=== PATIENT | male | born 1970 | race Caucasian/White ===

== ENCOUNTER 2021-05-07 08:33 | Emergency (ER) | payer MEDICAID, SELFPAY ==
[2021-05-07 08:33] VITALS: BP 141/82; PULSE 95; RESP 16; TEMP 36.3; O2SAT 96; BMI 35.4
[2021-05-07 09:05] LABS: Absolute Lymphocyte Count 1.16 X10^3/uL (0.83-4.51); Absolute Neutrophil Count 6.3 X10^3/uL (2.0-7.7); Basophil# 0.03 X10^3/uL; Basophil% 0.4 % (0-1); Eosinophil# 0.11 X10^3/uL; Eosinophils% 1.4 % (0-5); Hematocrit 41.6 % (40-54); Lymphocyte # 1.16 X10^3/ul (0.83-4.51); Lymphocyte % 14.3 % (19-41); Mean Corp Hgb Conc 33.7 g/dL (32-36); Mean Corpuscular Hgb 31.3 pg (27.0-32.0); Mean Corpuscular Volume 92.9 fL (80-94); Mean Platelet Vol. 8.9 fl (6.2-12.0); Monocyte# 0.51 X10^3/uL; Monocyte% 6.3 % (0-10); NRBC Flagged by Analyzer 0 % (0-5); Neutrophil # 6.28 X10^3/uL (2.7-7.7); Neutrophil % 77.1 % (47-70); Platelet Count 305 K/mm3 (150-450); RBC Distribution Width SD 44.2 fl (35.1-43.9); Red Blood Count 4.48 M/mm3 (4.6-6.2); White Blood Count 8.1 K/mm3 (4.4-11.0)
[2021-05-07 09:15] LABS: ALB/GLOB Ratio 0.9 RATIO (0.9-2.4); AST(SGOT) 21 U/L (15-37); Alanine Aminotransfer ALT/SGPT 25 U/L (16-61); Albumin, Serum 3.5 g/dL (3.2-5.0); Alkaline Phosphatase 66 U/L (45-117); Anion Gap 8 (5-15); BUN 12 mg/dL (7-18); BUN/Creat Ratio 9.4 RATIO (10-20); Calcium,Total 8.8 mg/dL (8.5-10.1); Chloride 106 mmol/L (98-107); Creatinine, Serum 1.28 mg/dL (0.70-1.30); EST Glomerular Filtration Rate 64 mL/min (>60); Est Glom Filt Rate - Afr Amer 77 mL/min (>60); Estimated Creatinine Clearance 75.17 ml/min; Globulin 4.1 g/dL (2.2-4.2); Glucose 97 mg/dL (74-106); Potassium 4.2 mmol/L (3.5-5.1); Protein, Total 7.6 g/dL (6.4-8.2); Sodium Level 138 mmol/L (136-145)
--- NOTE | 2021-05-07 09:15 | CT_ITS ---
STUDY: CT ABDOMEN AND PELVIS WITH CONTRAST REASON FOR EXAM: Male, 50 years old. Pain at the ileostomy site. Rectal pain and pressure. RADIATION DOSAGE (If Supplied By Facility): CTDIvol = ( 15.23 ) mGy, DLP = ( 1400.65 ) mGycm TECHNIQUE: Transaxial images were obtained from the dome of the diaphragm to the symphysis pubis with oral contrast. Oral and amp;amp; IV Gastrografin and amp;amp; 100mL Isovue-300 was administered. Sagittal and coronal images were reconstructed. Individualized dose optimization techniques were used for this CT. COMPARISON: None. FINDINGS: Minimal degree of increased markings at the lung bases suggestive of mild bibasilar atelectasis. The visualized portions of the heart are within normal limits. There is decreased attenuation of the liver consistent with steatosis. Normal gallbladder and extrahepatic biliary system. Normal spleen. Normal pancreas. Normal bilateral adrenal glands. Normal right kidney. Normal left kidney. Normal visualized stomach. An ostomy is seen in the left mid abdomen anteriorly. There is also evidence of a right paraumbilical hernia containing nondilated small bowel loops. The neck of the hernia measures 3.2 cm. Surgical clips are seen in the lower abdomen most likely at the anastomotic site of small bowel anastomosis. Normal colon. The appendix is visualized and appears normal. There is scattered atherosclerotic calcification of the abdominal aorta, without a demonstrated aneurysm. Normal inferior vena cava. Normal retroperitoneum. Normal urinary bladder. Normal abdominal wall. There are mild degenerative changes of the visualized lumbar spine. CT/Abdomen/Pelvis WITH Contrast IMPRESSION: Ostomy is seen in the left lower quadrant. Right paraumbilical hernia containing nondilated small bowel loop with the neck of the hernia measuring 3.2 cm. Electronically Signed: Maksim Tomas MD at 11:23 EDT , Service support ,
--- NOTE | 2021-05-07 09:16 | EX.ED.DYSGE1 ---
HPI History of Present Illness Chief Complaint: Abd Pain Informant: patient Narrative Narrative: 50-year-old male presents to the emergency department for evaluation abdominal pain. Patient states for the past several days he has had rectal pain/pressure and generalized abdominal pain. He feels nauseated. He feels bloated. Patient has a fairly complicated Crohn's history. Unfortunately all of his care has been in [place] and he recently moved to [facility]. He does not currently have any doctors caring for him locally. He is not on any maintenance medications for his Crohn's. Patient has had a J-pouch and currently with an ileostomy that was placed in 2019 in [place]. Patient states he is really has not had any problems since the ileostomy. Currently he notes no change in the output. No blood in the output. He states the stoma site has been looking fine. He denies history of SBO. [facility] Medical History (Updated 05/07/21 @ 12:[address] Dieter Johnson DO) GERD (gastroesophageal reflux disease) Hypertension Ileostomy present Irregular heart beat Ulcerative colitis Home Medications losartan 05/07/21 [History Last Taken Unknown] oxycodone-acetaminophen 1 tab PO Q6H PRN PRN 3 Days #12 tablet 05/07/21 [Rx Last Taken Unknown] spironolactone 05/07/21 [History Last Taken Unknown] Allergy/AdvReac Type Severity Reaction Status Date / Time No Known Allergies Allergy Verified 05/07/21 08:35 Surgical History (Updated 05/07/21 @ 09:[address] Dieter Johnson DO) H/O ileostomy Social History (Updated 05/07/21 @ 09:[address] Dieter Johnson DO) Smoking Status: Former smoker substance use type: does not use ROS ROS ED Constitutional Constitutional ED: Denies chills or weight loss Eyes Eyes: Denies change in vision or diplopia ENT ENT ED: Denies ear pain, rhinorrhea or sore throat Cardiovascular Cardiovascular: Denies chest pain, orthopnea, palpitations or racing heartbeat Respiratory/Chest Respiratory/Chest: Denies cough, dyspnea or orthopnea Gastrointestinal Gastrointestinal: Reports abdominal pain, nausea and other Details: Bloating ; Denies diarrhea or vomiting Genitourinary Genitourinary ED: Denies dysuria, hematuria or urinary frequency Musculoskeletal Musculoskeletal: Denies arthralgias or myalgias Integumentary Denies abscess or rash Neurologic Neurologic: Denies headache(s) or weakness Psychiatric Psychiatric: Denies anxiety, depression, suicidal ideation or suicidal thoughts Endocrine Endocrinology: Denies polydipsia, polyphagia or polyuria Allergic/Immunologic Allergic/Immunologic ED: Denies mouth swelling, tongue swelling or urticaria EXAM Physical Exam Const Vital Signs: 05/07/21 08:33 05/07/21 11:37 Temperature 97.3 F L Temperature Source Temporal Pulse Rate 95 72 Respiratory Rate 16 14 Blood Pressure 141/82 H 114/76 Blood Pressure Mean 101 88 Pulse Ox 96 99 Oxygen Delivery Method Room Air Room Air Positive well nourished and well developed General Appearance ED: well developed HEENT Reports normocephalic, head/scalp atraumatic and moist mucous membranes Eyes PERRL and EOMs intact bilaterally Neck no lymphadenopathy, supple and no JVD Resp normal respiratory effort and clear to auscultation bilaterally Cardio regular rate, regular rhythm and no murmurs GI GI Narrative: Mild diffuse tenderness to palpation. Stoma appears without complication. Auscultation: normoactive bowel sounds Palpation: soft and tender Back/Spine no CVA tenderness and normal ROM Extremity normal to inspection General Extremety ED: Negative for edema General Extremity: Negative for edema Neuro oriented x3 and CN's II-XII intact bilaterally Sensorium / Orientation: alert Motor Exam: strength 5/5 throughout Psych mental status grossly normal Mood & Affect: Negative for depressed or tearful Skin no rashes or lesions noted and no wounds MDM MDM MDM Narrative Medical decision making narrative: Basic blood work is normal. CT the pelvis does not show anything acute. At this point patient has received 2 doses of morphine and Zofran. He will be discharged home with a prescription for Percocet. He does not have any local doctors I will give him follow-up with GI. He may certainly follow-up with his doctors back in [place]. Should the patient have persistent or worsening symptoms over the next 2448 hrs. she should return to the emergency department for repeat evaluation Lab Data Attestation: I reviewed the patient's lab results. Labs: Laboratory Results - last 24 hr 05/07/21 05/07/21 05/07/21 08:53 08:53 08:53 WBC 8.1 RBC 4.48 L Hgb 14.0 Hct 41.6 MCV 92.9 MCH 31.3 MCHC 33.7 RDW Std Deviation 44.2 H RDW Coeff of Taran 13.0 Plt Count 305 MPV 8.9 Immature Gran % (Auto) 0.500 Neut % (Auto) 77.1 H Lymph % (Auto) 14.3 L [place] % (Auto) 6.3 Eos % (Auto) 1.4 Baso % (Auto) 0.4 Absolute Neuts (auto) 6.3 Absolute Lymphs (auto) 1.16 Nucleated RBC % 0 Sodium 138 Potassium 4.2 Chloride 106 Carbon Dioxide 24.0 Anion Gap 8 BUN 12 Creatinine 1.28 Estim Creat Clear Calc 75.17 Est GFR (MDRD) Af Amer 77 Est GFR (MDRD) Non-Af 64 BUN/Creatinine Ratio 9.4 L Glucose 97 Calcium 8.8 Total Bilirubin 0.40 AST 21 ALT 25 Alkaline Phosphatase 66 Total Protein 7.6 Albumin 3.5 Globulin 4.1 Albumin/Globulin Ratio 0.9 Lipase 158 Radiography Diagnostic Testing: Radiology Impression Abdomen/Pelvis CT 05/07/21 09:15 IMPRESSION: Ostomy is seen in the left lower quadrant. Right paraumbilical hernia containing nondilated small bowel loop with the neck of the hernia measuring 3.2 cm. Electronically Signed: Maksim Tomas MD at 11:23 EDT , Service support , Discharge Plan Triage Chief Complaint: Abd Pain ED Provider: Dieter Johnson Dx/Rx/DC Orders Clinical Impression: Abdominal pain, acute Instructions: Abdominal Pain Prescriptions: New oxycodone-acetaminophen [oxycodone-acetaminophen] 1 TABLET tablet 1 tab PO Q6H PRN PRN (Reason: Pain) 3 Days Qty: 12 RF: 0 No Action losartan RF: 0 spironolactone RF: 0 Primary Care Provider: Care Physician,No Primary Referrals: Care Physician,No Primary [Primary Care Provider] - Activity Restrictions/Additional Instructions: [facility] [place] phone number is Disposition Disposition: Home, Self Care
[2021-05-07] MEDS: 0.9% Normal Saline 1,000 ML 1000 ML IV (09:26)
[2021-05-07] MEDS: Ondansetron 4 MG/2 ML Vial IV (09:27)
[2021-05-07] MEDS: Morphine 4 MG/ML Syringe IV ×2 (09:27→11:35)
[2021-05-07 09:36] LABS: Lipase 158 U/L (73-393)
[2021-05-07] MEDS: 0.9% Normal Saline 1,000 ML 150 ML IV (11:36)
[2021-05-07 11:37] VITALS: BP 114/76; PULSE 72; RESP 14; O2SAT 99
== END 2021-05-07 12:30 | disposition home or self-care (01) ==
PROVIDERS: Emergency Provider Emergency Medicine
DX: R10.9 Unspecified abdominal pain (principal); K42.9 Umbilical hernia without obstruction or gangrene; I10 Essential (primary) hypertension; K21.9 Gastro-esophageal reflux disease without esophagitis; K50.90 Crohn's disease, unspecified, without complications; Z79.899 Other long term (current) drug therapy; Z87.891 Personal history of nicotine dependence; Z93.2 Ileostomy status
CPT/HCPCS: 74177; 80053; 83690; 85025; 96361; 96374; 96375; 96376; 99284; J7030; Q9967; A4216; J2405

== ENCOUNTER 2022-10-06 15:16 | Inpatient (IN) | payer BC, SELFPAY ==
[2022-10-06 15:17] VITALS: BP 163/94; PULSE 64; RESP 15; TEMP 36.2; O2SAT 98; BMI 34.5
--- NOTE | 2022-10-06 15:32 | CT_ITS ---
EXAM: CT ABDOMEN AND PELVIS WITH INTRAVENOUS CONTRAST CLINICAL INDICATION: abdominal pain TECHNIQUE: Helically acquired images were obtained of the abdomen and pelvis with intravenous contrast. This CT exam was performed using one or more of the following dose reduction techniques: automated exposure control, adjustment of the mA and/or kV according to patient size, and/or use of iterative reconstruction technique. This report was created using [employer] report generation technology. CONTRAST: IV 100mL Isovue-370 COMPARISON: CT Abdomen Pelvis dated 05/07/2021 FINDINGS: LOWER THORAX: Normal. Lung bases are clear. No cardiomegaly. No pericardial effusion. ABDOMEN: LIVER: Normal. Homogeneous. No focal mass. GALLBLADDER AND BILE DUCTS: Gallbladder is contracted consistent with a nonfasting state. No calcified gallstones. No gallbladder wall edema. No intra- or extrahepatic biliary ductal dilation. PANCREAS: Normal. No focal cystic or solid mass. SPLEEN: Normal. Normal size without focal cystic or solid mass. ADRENALS: Normal. No nodules. KIDNEYS AND URETERS: Normal. Normal renal size and position. No hydronephrosis. STOMACH AND BOWEL: Surgical changes of total colectomy noted. Left-sided ileostomy in place. Small bowel projects into a right-sided spigelian hernia significantly changed from prior exam. Nonspecific fluid distended small bowel loops within the left side of the abdomen suggestive of ileus. Close loop obstruction thought to be unlikely. PELVIS: APPENDIX: Absent BLADDER: Normal. REPRODUCTIVE: Unremarkable as visualized. No mass. ABDOMEN and PELVIS: INTRAPERITONEAL SPACE: Normal. No ascites or other fluid collection. No free air. BONES/JOINTS: Normal. No suspicious lytic or blastic abnormality. SOFT TISSUES: See above. VASCULATURE: Normal. Abdominal aorta is non-dilated. LYMPH NODES: Normal. No enlarged lymph nodes. CT/Abdomen/Pelvis W IV Cont ONLY IMPRESSION: 1. Left-sided small bowel distention suggestive of ileus. 2. Stable right spiculated hernia containing nonobstructed small bowel. 3. Surgical changes of total colectomy. Electronically Signed: Celso Rojo MD at 16:39 EST Reading Location ID and State: [address] [place] [address] Tel , Service support ,
--- NOTE | 2022-10-06 15:38 | EDS_ITS ---
HPI <ANTON Shirley - Last Filed: 10/06/22 17:53> History of Present Illness Chief Complaint: Abd Pain Narrative Narrative: 51-year-old male with PMH of multiple surgeries for ulcerative colitis and colostomy, appendectomy presents with abdominal pain that started around 12:30 PM today after eating 2 pieces of pizza. He felt nauseous and took some Pepto- Bismol. No vomiting. He has been having normal nonbloody output in his ostomy bag and normal urination. He denies history of GERD or reflux and is not on medication for this. He does drink anywhere from 3-12 beers per day; denies smoking. PFSH <ANTON Shirley - Last Filed: 10/06/22 17:53> PFSH Medical History (Updated 10/06/22 @ 17:53 by ANTON Shirley) GERD (gastroesophageal reflux disease) Hypertension Ileostomy present Irregular heart beat Ulcerative colitis Home Medications losartan 05/07/21 [History Last Taken Unknown] oxycodone-acetaminophen 5 mg-325 mg tablet 1 tab PO Q6H PRN PRN Pain 3 days #12 TABLETS 05/07/21 [Rx Last Taken Unknown] spironolactone 05/07/21 [History Last Taken Unknown] Allergy/AdvReac Type Severity Reaction Status Date / Time No Known Allergies Allergy Verified 10/06/22 15:17 Surgical History H/O ileostomy Social History (Updated 05/07/21 @ 09:[address] Dieter Johnson, DO) Smoking Status: Current every day smoker tobacco type: smokeless tobacco substance use type: does not use ROS <ANTON Shirley - Last Filed: 10/06/22 17:53> ROS ED ROS Narrative Constitutional: Negative for fever, chills, malaise. Eyes: Negative for visual change. ENT: Negative for sore throat, ear pain, rhinorrhea. CVS: Negative for palpitations, chest pain, syncope. Respiratory: Negative for shortness of breath, cough, orthopnea. GI: Positive for abdominal pain, nausea. Negative for vomiting, diarrhea, constipation, melena, hematochezia. : Negative for dysuria, hematuria or frequency. Neuro: Negative for headache, motor/sensory dysfunction. Skin: Negative for rash, abscess, or wound. Musc: Negative for joint pain, swelling, trauma. Heme: Negative for easy bruising, bleeding, lymphadenopathy. EXAM <ANTON Shirley - Last Filed: 10/06/22 17:53> Physical Exam Narrative Exam Narrative: CONST: Patient sitting in no acute distress. EYES: Normal inspection. ENT: Normal inspection, moist mucous membranes. NECK: Normal inspection. RESP: No respiratory distress, CTAB. CVS: Regular rate and rhythm, no murmur, no gallop. ABD: Soft with diffuse tenderness but no guarding or rebound, nondistended, no hepatosplenomegaly. Back: Normal inspection. SKIN: Color normal, no rash, warm, dry, intact. EXTREMITIES: Normal appearance, no pedal edema. NEURO: Oriented x4. PSYCH: Normal affect. Const Vital Signs: 10/06/22 15:17 Temperature 97.1 F L Temperature Source Temporal Pulse Rate 64 Respiratory Rate 15 Blood Pressure 163/94 H Blood Pressure Mean 117 Pulse Ox 98 Oxygen Delivery Method Room Air <Dr. Alen Diehl MD - Last Filed: 10/06/22 16:46> Physical Exam Const Vital Signs: 10/06/22 15:17 Temperature 97.1 F L Temperature Source Temporal Pulse Rate 64 Respiratory Rate 15 Blood Pressure 163/94 H Blood Pressure Mean 117 Pulse Ox 98 Oxygen Delivery Method Room Air MDM <ANTON Shirley - Last Filed: 10/06/22 17:53> MDM MDM Narrative Medical decision making narrative: Patient presents with abdominal pain and nausea. He has a history of ulcerative colitis and colostomy. He appears uncomfortable but nontoxic. Mildly hypertensive with otherwise normal vital signs. He has diffuse abdominal tenderness with no peritoneal signs. Normal ostomy output. Blood work is all unremarkable and CT shows left sided ileus but no clear obstruction. After antiemetics and analgesia he continues to have pain. Case discussed with the hospitalist for observation. I have personally performed a face to face assessment of the patient and have reviewed the TESSA Note. I performed a substantive portion of the visit including all aspects of the following. My jerome findings include: History is [51-year-old male that evaluated with our physician research assistant member. Patient has a history of ulcerative colitis. He is a left lower quadrant ostomy. States around 1230 today started having abdominal pain. Has had this before but typically resolves. Pains been going on now for hours. He denies any nausea or vomiting. No fever. His ostomy bag has had gas and stool in the last several days. He denies any dysuria or fever.] Exam is [51-year-old male vital signs stable afebrile. H EENT exam unremarkable. Lungs are clear. Heart regular rhythm no murmur. Rate about 65. Abdomen soft nondistended. Tender primarily in the left lower quadrant. No peritoneal signs. Ostomy bag has very small amount of loose stool. Right upper right lower quadrant exam unremarkable. Moving all 4 extremities. Nontender no edema.] Medical Decision Making [51-year-old male with a colostomy with abdominal pain. Screening labs CBC, chemistry, liver enzymes and lipase are unremarkable. CAT scan shows ileus type picture. He has been treated with morphine. Will be given a second dose. IV fluids. Patient will be watched to see if his pain improves he may be able to be discharged home if not he may need admission.] Other additions or changes: [None] Lab Data Labs: Laboratory Results - last 24 hr 10/06/22 10/06/22 15:47 15:47 WBC 9.9 RBC 4.72 Hgb 14.8 Hct 42.5 MCV 90.0 MCH 31.4 MCHC 34.8 RDW Std Deviation 39.2 RDW Coeff of Taran 11.9 Plt Count 294 MPV 9.3 Immature Gran % (Auto) 0.300 Neut % (Auto) 68.5 Lymph % (Auto) 20.3 [place] % (Auto) 8.1 Eos % (Auto) 2.3 Baso % (Auto) 0.5 Absolute Neuts (auto) 6.8 Absolute Lymphs (auto) 2.01 Nucleated RBC % 0 Sodium 142 Potassium 3.6 Chloride 110 H Carbon Dioxide 25.0 Anion Gap 7 BUN 17 Creatinine 1.27 Estim Creat Clear Calc 74.94 Est GFR (MDRD) Af Amer 77 Est GFR (MDRD) Non-Af 64 BUN/Creatinine Ratio 13.4 Glucose 117 H Calcium 9.1 Total Bilirubin 0.30 AST 16 ALT 28 Alkaline Phosphatase 62 Total Protein 7.3 Albumin 3.6 Globulin 3.7 Albumin/Globulin Ratio 1.0 Lipase 137 Radiography Diagnostic Testing: Clinical Impression(s) from Imaging Studies Abdomen/Pelvis CT 10/06/22 15:32 IMPRESSION: 1. Left-sided small bowel distention suggestive of ileus. 2. Stable right spiculated hernia containing nonobstructed small bowel. 3. Surgical changes of total colectomy. Electronically Signed: Celso Rojo MD at 16:39 EST Reading Location ID and State: [address] [place] [address] Tel , Service support , <Dr. Alen Diehl MD - Last Filed: 10/06/22 16:46> MDM MDM Narrative Medical decision making narrative: I have personally performed a face to face assessment of the patient and have reviewed the TESSA Note. I performed a substantive portion of the visit including all aspects of the following. My jerome findings include: History is [51-year-old male that evaluated with our physician research assistant member. Patient has a history of ulcerative colitis. He is a left lower quadrant ostomy. States around 1230 today started having abdominal pain. Has had this before but typically resolves. Pains been going on now for hours. He denies any nausea or vomiting. No fever. His ostomy bag has had gas and stool in the last several days. He denies any dysuria or fever.] Exam is [51-year-old male vital signs stable afebrile. H EENT exam unremarkable. Lungs are clear. Heart regular rhythm no murmur. Rate about 65. Abdomen soft nondistended. Tender primarily in the left lower quadrant. No peritoneal signs. Ostomy bag has very small amount of loose stool. Right upper right lower quadrant exam unremarkable. Moving all 4 extremities. Nontender no edema.] Medical Decision Making [51-year-old male with a colostomy with abdominal pain. Screening labs CBC, chemistry, liver enzymes and lipase are unremarkable. CAT scan shows ileus type picture. He has been treated with morphine. Will be given a second dose. IV fluids. Patient will be watched to see if his pain improves he may be able to be discharged home if not he may need admission.] Other additions or changes: [None] Lab Data Attestation: I reviewed the patient's lab results. Lab results narrative: Glucose 1CBC normal. White count 9. H&H 14 and 42. Electrolytes gap 7. Normal BUN and creatinine. Liver enzymes unremarkable. Lipase normal 137. 17. Labs: Laboratory Results - last 24 hr 10/06/22 10/06/22 15:47 15:47 WBC 9.9 RBC 4.72 Hgb 14.8 Hct 42.5 MCV 90.0 MCH 31.4 MCHC 34.8 RDW Std Deviation 39.2 RDW Coeff of Taran 11.9 Plt Count 294 MPV 9.3 Immature Gran % (Auto) 0.300 Neut % (Auto) 68.5 Lymph % (Auto) 20.3 [place] % (Auto) 8.1 Eos % (Auto) 2.3 Baso % (Auto) 0.5 Absolute Neuts (auto) 6.8 Absolute Lymphs (auto) 2.01 Nucleated RBC % 0 Sodium 142 Potassium 3.6 Chloride 110 H Carbon Dioxide 25.0 Anion Gap 7 BUN 17 Creatinine 1.27 Estim Creat Clear Calc 74.94 Est GFR (MDRD) Af Amer 77 Est GFR (MDRD) Non-Af 64 BUN/Creatinine Ratio 13.4 Glucose 117 H Calcium 9.1 Total Bilirubin 0.30 AST 16 ALT 28 Alkaline Phosphatase 62 Total Protein 7.3 Albumin 3.6 Globulin 3.7 Albumin/Globulin Ratio 1.0 Lipase 137 Radiography Diagnostic Testing: Clinical Impression(s) from Imaging Studies Abdomen/Pelvis CT 10/06/22 15:32 IMPRESSION: 1. Left-sided small bowel distention suggestive of ileus. 2. Stable right spiculated hernia containing nonobstructed small bowel. 3. Surgical changes of total colectomy. Electronically Signed: Celso Rojo MD at 16:39 EST , Discharge Plan Triage Chief Complaint: Abd Pain ED Midlevel Provider: Joann Narayanan ED Provider: Alen Diehl Dx/Rx/DC Orders Clinical Impression: Acute abdominal pain Prescriptions: No Action losartan spironolactone oxycodone-acetaminophen [oxycodone-acetaminophen] 1 TABLET tablet 1 tab PO Q6H PRN PRN (Reason: Pain) 3 Days Qty: 12 0RF Primary Care Provider: Ana Rodney Referrals: Care Physician,No Primary [Non-Staff] -
[2022-10-06] MEDS: 0.9% Normal Saline 1,000 ML 999 ML IV (15:52)
[2022-10-06] MEDS: Morphine 4 MG/ML Syringe IV (15:52)
[2022-10-06] MEDS: Ondansetron 4 MG/2 ML Vial IV (15:52)
[2022-10-06 15:55] LABS: Absolute Lymphocyte Count 2.01 X10^3/uL (0.83-4.51); Absolute Neutrophil Count 6.8 X10^3/uL (2.0-7.7); Basophil# 0.05 X10^3/uL; Basophil% 0.5 % (0-1); Eosinophil# 0.23 X10^3/uL; Eosinophils% 2.3 % (0-5); Hematocrit 42.5 % (40-54); Hemoglobin 14.8 g/dL (13.0-16.5); Lymphocyte # 2.01 X10^3/ul (0.83-4.51); Lymphocyte % 20.3 % (19-41); Mean Corp Hgb Conc 34.8 g/dL (32-36); Mean Corpuscular Hgb 31.4 pg (27.0-32.0); Mean Platelet Vol. 9.3 fl (6.2-12.0); Monocyte% 8.1 % (0-10); NRBC Flagged by Analyzer 0 % (0-5); Neutrophil % 68.5 % (47-70); Platelet Count 294 K/mm3 (150-450); RBC Distribution Width CV 11.9 % (11.6-14.6); RBC Distribution Width SD 39.2 fl (35.1-43.9); Red Blood Count 4.72 M/mm3 (4.6-6.2); White Blood Count 9.9 K/mm3 (4.4-11.0)
[2022-10-06 16:12] LABS: AST(SGOT) 16 U/L (15-37); Alanine Aminotransfer ALT/SGPT 28 U/L (16-61); Albumin, Serum 3.6 g/dL (3.2-5.0); Alkaline Phosphatase 62 U/L (45-117); Anion Gap 7 (5-15); BUN 17 mg/dL (7-18); BUN/Creat Ratio 13.4 RATIO (10-20); Calcium,Total 9.1 mg/dL (8.5-10.1); Chloride 110 mmol/L (98-107); Creatinine, Serum 1.27 mg/dL (0.70-1.30); EST Glomerular Filtration Rate 64 mL/min (>60); Est Glom Filt Rate - Afr Amer 77 mL/min (>60); Estimated Creatinine Clearance 74.94 ml/min; Globulin 3.7 g/dL (2.2-4.2); Glucose 117 mg/dL (74-106); Lipase 137 U/L (73-393); Potassium 3.6 mmol/L (3.5-5.1); Protein, Total 7.3 g/dL (6.4-8.2); Sodium Level 142 mmol/L (136-145)
[2022-10-06] MEDS: morphine 8 MG/ML Syringe 6 MG IV (16:46)
--- NOTE | 2022-10-06 17:49 | ED.RN ---
PT STATES TO THIS RN. MORPHINE DOES NOT WORK FOR ME BUT DILAUDID DOES.PT STATES BUT YOU NEED TO KNOW I NEED A HORSE DOSE AND NOT A BABY DOSE.
[2022-10-06] MEDS: HYDROmorphone 1 MG/ML Syringe IV (17:55)
[2022-10-06 17:57] VITALS: BP 158/68; PULSE 88; RESP 16; O2SAT 98
[2022-10-06 17:58] VITALS: BP 172/68; PULSE 78; RESP 16; TEMP 36.4; O2SAT 99
--- NOTE | 2022-10-06 18:10 | RAD_ITS ---
STUDY: XR Abdomen 1 View 10/06/2022 6:19 PM REASON FOR EXAM: Male, 51 years old. ABDOMINAL PAIN DISTENTION TECHNIQUE: XR Abdomen 1 View COMPARISON: CT done earlier FINDINGS: Normal visualized lung bases. There is a paralytic ileus of the small intestine with mild gaseous distention. There is no demonstrated free abdominal air. There is a left lower quadrant ostomy noted. Normal soft tissue structures. Normal visualized osseous structures. RAD/Abdomen Single View IMPRESSION: Findings may represent an ileus. Obstruction is not excluded. Electronically Signed: Isaac Wilson MD at 18:26 EST ,
--- NOTE | 2022-10-06 18:59 | CON.PCM.SX_ITS ---
Assessment & Plan Assessment/Plan (1) Abdominal pain, acute: (2) Ileus: PLAN: I believe the patient will hopefully be able to be managed conservatively. Since he is not vomiting I do not recommend an NG tube at this time. I have no problem with him chewing gum and having ice chips. I have encouraged him to do ambulation and hopefully with hydration we will see things start to resolve. HPI Consult Data Date of Consult: 10/06/22 HPI Narrative HPI Narrative: YODIT DAWSON, is a 51 M who presents with PMH of multiple surgeries for ulcerative colitis and colostomy, appendectomy presents with abdominal pain that started around 12:30 PM today after eating 2 pieces of pizza.? He felt nauseous and took some Pepto-Bismol.? No vomiting.? He has been having normal nonbloody output in his ostomy bag and normal urination.? He denies history of GERD or reflux and is not on medication for this.? He does drink anywhere from 3-12 beers per day; denies smoking. CT scan IMPRESSION: ? 1.? Left-sided small bowel distention suggestive of ileus. ? 2.? Stable right spiculated hernia containing nonobstructed small bowel. ? 3.? Surgical changes of total colectomy. [facility] Medical History GERD (gastroesophageal reflux disease) Hypertension Ileostomy present Irregular heart beat Ulcerative colitis Home Medications carvedilol 25 mg tablet 25 mg PO BID 10/06/22 [History Last Taken Unknown] multivit,tx w/iron (hematinic) 1 tab PO DAILY 10/06/22 [History Last Taken Unknown] vit B complex with C 300 mg-calcium carbonate 150 mg calcium tablet 1 tab PO DAILY 10/06/22 [History Last Taken Unknown] Allergy/AdvReac Type Severity Reaction Status Date / Time No Known Allergies Allergy Verified 10/06/22 15:17 Surgical History H/O ileostomy Social History Smoking Status: Current every day smoker tobacco type: smokeless tobacco alcohol intake: current alcohol intake frequency: 3 or more drinks per day Alcohol type: beer substance use type: does not use ROS Constitutional Constitutional: Denies chills, fatigue or fever(s) Cardiovascular Cardiovascular: Denies chest pain Respiratory/Chest Respiratory/Chest: Denies cough or dyspnea Gastrointestinal Gastrointestinal: Reports abdominal pain, constipation, diarrhea, melena and nausea; Denies vomiting Genitourinary Genitourinary: Denies dysuria Physical Exam Const alert, oriented x3 and no apparent distress HEENT normocephalic and head/scalp atraumatic Eyes PERRL and EOMs intact bilaterally Resp clear to auscultation bilaterally Cardio Rate: regular rate Rhythm: regular rhythm GI soft to palpation GI Narrative: Patient has no rebound guarding or peritoneal signs identified Palpation: tender; Negative for guarding Lab / Micro Data Result Diagrams: 10/06/22 15:47 10/06/22 15:47 Labs: Laboratory Results - last 24 hr 10/06/22 15:47: WBC 9.9, RBC 4.72, Hgb 14.8, Hct 42.5, MCV 90.0, MCH 31.4, MCHC 34.8, RDW Std Deviation 39.2, RDW Coeff of Taran 11.9, Plt Count 294, MPV 9.3, Immature Gran % (Auto) 0.300, Neut % (Auto) 68.5, Lymph % (Auto) 20.3, [place] % (Auto) 8.1, Eos % (Auto) 2.3, Baso % (Auto) 0.5, Absolute Neuts (auto) 6.8, Absolute Lymphs (auto) 2.01, Nucleated RBC % 0 10/06/22 15:47: Sodium 142, Potassium 3.6, Chloride 110 H, Carbon Dioxide 25.0, Anion Gap 7, BUN 17, Creatinine 1.27, Estim Creat Clear Calc 74.94, Est GFR (MDRD) Af Amer 77, Est GFR (MDRD) Non-Af 64, BUN/Creatinine Ratio 13.4, Glucose 117 H, Calcium 9.1, Total Bilirubin 0.30, AST 16, ALT 28, Alkaline Phosphatase 62, Total Protein 7.3, Albumin 3.6, Globulin 3.7, Albumin/Globulin Ratio 1.0, Lipase 137 Radiology Impression Abdomen/Pelvis CT 10/06/22 15:32 IMPRESSION: 1. Left-sided small bowel distention suggestive of ileus. 2. Stable right spiculated hernia containing nonobstructed small bowel. 3. Surgical changes of total colectomy. Electronically Signed: Celso Rojo MD at 16:39 EST , KUB X-Ray 10/06/22 18:10 IMPRESSION: Findings may represent an ileus. Obstruction is not excluded. Electronically Signed: Isaac Wilson MD at 18:26 EST ,
--- NOTE | 2022-10-06 19:01 | HP.PCM.HOS_ITS ---
HPI - General General Date of Service: 10/06/22 Chief Complaint: Abdominal pain HPI Narrative YODIT DAWSON, is a 51 M who presents abdominal pain. Around 1230, while patient was eating some pizza, experienced intense diffuse abdominal pain. Did not relent and presented to the emergency room. CAT scan showed what appeared to be an ileus. Patient received morphine and hydromorphone. States he been in the emergency room, he has been feeling worse. He is not but have any nausea or vomiting. Patient does have a colostomy and then been there is output coming from it. Patient states that his abdomen has become more distended since he has been here [facility] Medical History GERD (gastroesophageal reflux disease) Hypertension Ileostomy present Irregular heart beat Ulcerative colitis Home Medications carvedilol 25 mg tablet 25 mg PO BID 10/06/22 [History Last Taken Unknown] multivit,tx w/iron (hematinic) 1 tab PO DAILY 10/06/22 [History Last Taken Unknown] vit B complex with C 300 mg-calcium carbonate 150 mg calcium tablet 1 tab PO DAILY 10/06/22 [History Last Taken Unknown] Allergy/AdvReac Type Severity Reaction Status Date / Time No Known Allergies Allergy Verified 10/06/22 15:17 Surgical History (Updated 10/06/22 @ 19:[address] Luis Cochran DO) H/O colectomy H/O ileostomy Social History (Updated 10/06/22 @ 19:[address] Luis Cochran DO) Smoking Status: Current every day smoker tobacco type: smokeless tobacco alcohol intake: current alcohol intake frequency: 3 or more drinks per day Alcohol type: beer substance use type: does not use ROS ROS Narrative All review of systems were negative except as mentioned above in the history of present illness and the other review of systems. Vital Signs Vital Signs Vital Signs: 10/06/22 15:17 10/06/22 17:57 10/06/22 17:58 Temperature 36.2 C L 36.4 C L Temperature Source Temporal Temporal Pulse Rate 64 88 78 Respiratory Rate 15 16 16 Blood Pressure 163/94 H 158/68 H 172/68 H Blood Pressure Mean 117 98 102 Pulse Ox 98 98 99 Oxygen Delivery Method Room Air Room Air Weight Weight: 112.491 kg Body Mass Index (BMI) 34.5 Physical Exam Const alert and no apparent distress HEENT normocephalic, head/scalp atraumatic and hearing grossly normal bilaterally Resp normal respiratory effort, no retractions, no use of accessory muscles and clear to auscultation bilaterally Cardio regular rate, regular rhythm, S1 normal heart sound and S2 normal heart sound GI GI Narrative: Hypoactive bowel sounds. Distended. Extremity normal to inspection Results Lab / Micro Data Attestation: I reviewed the patient's lab results. Result Diagrams: 10/06/22 15:47 10/06/22 15:47 Labs: Laboratory Results - last 24 hr 10/06/22 15:47: WBC 9.9, RBC 4.72, Hgb 14.8, Hct 42.5, MCV 90.0, MCH 31.4, MCHC 34.8, RDW Std Deviation 39.2, RDW Coeff of Taran 11.9, Plt Count 294, MPV 9.3, Immature Gran % (Auto) 0.300, Neut % (Auto) 68.5, Lymph % (Auto) 20.3, [place] % (Auto) 8.1, Eos % (Auto) 2.3, Baso % (Auto) 0.5, Absolute Neuts (auto) 6.8, Absolute Lymphs (auto) 2.01, Nucleated RBC % 0 10/06/22 15:47: Sodium 142, Potassium 3.6, Chloride 110 H, Carbon Dioxide 25.0, Anion Gap 7, BUN 17, Creatinine 1.27, Estim Creat Clear Calc 74.94, Est GFR (MDRD) Af Amer 77, Est GFR (MDRD) Non-Af 64, BUN/Creatinine Ratio 13.4, Glucose 117 H, Calcium 9.1, Total Bilirubin 0.30, AST 16, ALT 28, Alkaline Phosphatase 62, Total Protein 7.3, Albumin 3.6, Globulin 3.7, Albumin/Globulin Ratio 1.0, Lipase 137 Radiology Impression Abdomen/Pelvis CT 10/06/22 15:32 IMPRESSION: 1. Left-sided small bowel distention suggestive of ileus. 2. Stable right spiculated hernia containing nonobstructed small bowel. 3. Surgical changes of total colectomy. Electronically Signed: Celso Rojo MD at 16:39 EST , KUB X-Ray 10/06/22 18:10 IMPRESSION: Findings may represent an ileus. Obstruction is not excluded. Electronically Signed: Isaac Wilson MD at 18:26 EST , Assessment & Plan Assessment/Plan (1) Ileus: PLAN: Noted on CAT scan and subsequent x-ray. Patient at high risk for bowel obstructions given his prior history of extensive abdominal surgeries. The surgeries were performed at [facility]. I contacted Dr. Cruz saw the patient in the emergency room and anticipates he will get better. Ileus is what is suspected but cannot definitively rule out small bowel obstruc tion at this time. Plan for now * N.p.o. * IV fluids * Pain control and antiemetics PLAN: Plan History of cardiomyopathy. Subsequently resolved patient needs to have an EF that was around 15% but he said that that is normal now. Continue with niurka serrano. VTE prophylaxis with enoxaparin Charges/Coding Visit Charges Inpatient E&M: 75918 Init Hosp L2
[2022-10-06 20:01] VITALS: BMI 34.5
[2022-10-06 20:05] VITALS: BP 149/97; PULSE 64; RESP 18; TEMP 36.5; O2SAT 99
[2022-10-06] MEDS: 0.9% Normal Saline 1,000 ML 150 ML IV (20:27)
[2022-10-06] MEDS: 0.9% Saline Lock 10 ML Syringe IV (20:27)
[2022-10-06] MEDS: Ketorolac 15 MG/ML Vial IV (20:32)
[2022-10-06] MEDS: HYDROmorphone Inj 0.2 MG/ML SYRINGE IV (21:10)
[2022-10-06] MEDS: Carvedilol 25 MG Tablet PO (22:19)
[2022-10-07] MEDS: 0.9% Saline Lock 10 ML Syringe IV ×3 (00:16→13:03)
[2022-10-07] MEDS: HYDROmorphone Inj 0.2 MG/ML SYRINGE 0.5 MG IV ×5 (00:16→17:53)
[2022-10-07 02:00] VITALS: BP 134/86; PULSE 69; RESP 14; TEMP 36.5; O2SAT 97
[2022-10-07] MEDS: 0.9% Normal Saline 1,000 ML 150 ML IV ×4 (03:14→23:01)
[2022-10-07 06:04] LABS: Absolute Lymphocyte Count 1.76 X10^3/uL (0.83-4.51); Absolute Neutrophil Count 8.1 X10^3/uL (2.0-7.7); Basophil# 0.04 X10^3/uL; Basophil% 0.4 % (0-1); Eosinophil# 0.17 X10^3/uL; Eosinophils% 1.6 % (0-5); Hematocrit 41.6 % (40-54); Hemoglobin 13.6 g/dL (13.0-16.5); Lymphocyte # 1.76 X10^3/ul (0.83-4.51); Lymphocyte % 16.1 % (19-41); Mean Corp Hgb Conc 32.7 g/dL (32-36); Mean Corpuscular Hgb 30.8 pg (27.0-32.0); Mean Corpuscular Volume 94.3 fL (80-94); Monocyte# 0.78 X10^3/uL; Monocyte% 7.1 % (0-10); NRBC Flagged by Analyzer 0 % (0-5); Neutrophil # 8.13 X10^3/uL (2.7-7.7); Neutrophil % 74.3 % (47-70); Platelet Count 264 K/mm3 (150-450); RBC Distribution Width CV 12.3 % (11.6-14.6); RBC Distribution Width SD 42.7 fl (35.1-43.9); Red Blood Count 4.41 M/mm3 (4.6-6.2); White Blood Count 10.9 K/mm3 (4.4-11.0)
[2022-10-07 06:22] LABS: Anion Gap 6 (5-15); BUN 13 mg/dL (7-18); BUN/Creat Ratio 11.8 RATIO (10-20); Calcium,Total 8.3 mg/dL (8.5-10.1); Chloride 109 mmol/L (98-107); EST Glomerular Filtration Rate 75 mL/min (>60); Est Glom Filt Rate - Afr Amer 91 mL/min (>60); Estimated Creatinine Clearance 86.52 ml/min; Glucose 98 mg/dL (74-106); Potassium 3.6 mmol/L (3.5-5.1); Sodium Level 140 mmol/L (136-145)
[2022-10-07 07:54] VITALS: BP 123/82; PULSE 56; RESP 16; TEMP 36.6; O2SAT 99
[2022-10-07] MEDS: Carvedilol 25 MG Tablet PO ×2 (08:03→17:42)
--- NOTE | 2022-10-07 09:40 | CASEMGMT ---
GEOFF TADEO Assessment: Face to Face with pt for initial transition planning/care coordination assessment. RN SHWETHA introduced self and role at [facility], pt voices understanding and consents to assessment. Pt is A/O x4 and answers all questions appropriately at this time. Pt lying in bed in no distress. Care providers, pharmacy, and demographics verified/updated. Admitting Dx: ileus PCP:Ana Rodney [employer] [facility] at [facility] [place] Specialists:Pt denies. Preferred Pharmacy: [facility] Insurance: [place] Prescription Benefit: yes LW/HPOA: Pt denies having a LW/DPOA and denies need for info regarding AD. LNOK: Pt does not have contacts listed and declines to list any. Living Arrangements: Pt lives alone in a ground level apt with 2 steps to enter. Pt reports he is I in ADL's and denies concerns at home. Transportation: Pt drives self and denies concerns with transportation. DME/HHC/SNF: Pt gets ileostomy supplies through [facility]. Pt denies any other DME in the home. Pt has had HHC in the past in another state, [place]. Pt denies SNF stays. Pt states no concerns with going home at time of dc. Pt declines to answer questions regarding cigarettes, alcohol or drug use. Pt states no further concerns/needs. CM to follow. Advised pt to ask CM if any further question/concerns/needs arise, voices understanding. Pt Goal: Home Plan: Home
--- NOTE | 2022-10-07 12:07 | RAD_ITS ---
STUDY: X-RAY - ABDOMEN/PELVIS REASON FOR EXAM: Male, 51 years old. SBO -- PER DR FLAT AND UPRIGHT TECHNIQUE: AP supine and upright views of the abdomen and pelvis. COMPARISON: Comparison is made with prior study dated 10/06/2022. FINDINGS: Normal visualized lung bases. There are dilated loops of the small intestine with a non-distended colon consistent with a small bowel obstruction. The transition point is in the left mid abdomen. There is no demonstrated free abdominal air. The visualized liver, spleen and kidneys are grossly normal in size and morphology. Normal soft tissue structures. Normal visualized osseous structures. RAD/Abd Inc Decub and/or Erect IMPRESSION: Findings suggestive of a small bowel obstruction with the transition point in the left mid abdomen. Electronically Signed: Maksim Tomas MD at 12:51 EST ,
[2022-10-07 13:10] VITALS: BP 132/84; PULSE 60; RESP 18; TEMP 36.9; O2SAT 97
[2022-10-07] MEDS: Metoclopramide 10 MG/2 ML Vial 5 MG IV ×3 (13:18→23:00)
--- NOTE | 2022-10-07 14:59 | PCM.PN.SRG ---
Subjective Subjective Patient states that he feels somewhat better. Still he has had no output from his ileostomy. Objective Data Objective Data His abdomen is soft there is no rebound guarding or peritoneal signs he still mostly tender on the left side. Right side is not tender as it was yesterday Vital Signs: Vital Signs Temp Pulse Resp BP Pulse Ox O2 Del Method 98.5 F 60 18 132/84 H 97 Room Air 10/07/22 13:10 10/07/22 13:10 10/07/22 13:10 10/07/22 13:10 10/07/22 13:10 10/07/22 13:10 Oxygen Delivery Method Room Air Weight: 248 lb 0.321 oz Body Mass Index (BMI) 34.5 Intake & Output: Intake and Output for Last 24 Hours 10/05/22 10/06/22 10/07/22 23:59 23:59 23:59 Intake Total 1110 / 1110 2150 / 2150 Balance 1110 / 1110 2150 / 2150 Lab / Micro Data Result Diagrams: 10/07/22 04:34 10/07/22 04:34 Labs: Laboratory Results - last 24 hr 10/06/22 15:47: WBC 9.9, RBC 4.72, Hgb 14.8, Hct 42.5, MCV 90.0, MCH 31.4, MCHC 34.8, RDW Std Deviation 39.2, RDW Coeff of Taran 11.9, Plt Count 294, MPV 9.3, Immature Gran % (Auto) 0.300, Neut % (Auto) 68.5, Lymph % (Auto) 20.3, [place] % (Auto) 8.1, Eos % (Auto) 2.3, Baso % (Auto) 0.5, Absolute Neuts (auto) 6.8, Absolute Lymphs (auto) 2.01, Nucleated RBC % 0 10/06/22 15:47: Sodium 142, Potassium 3.6, Chloride 110 H, Carbon Dioxide 25.0, Anion Gap 7, BUN 17, Creatinine 1.27, Estim Creat Clear Calc 74.94, Est GFR (MDRD) Af Amer 77, Est GFR (MDRD) Non-Af 64, BUN/Creatinine Ratio 13.4, Glucose 117 H, Calcium 9.1, Total Bilirubin 0.30, AST 16, ALT 28, Alkaline Phosphatase 62, Total Protein 7.3, Albumin 3.6, Globulin 3.7, Albumin/Globulin Ratio 1.0, Lipase 137 10/07/22 04:34: WBC 10.9, RBC 4.41 L, Hgb 13.6, Hct 41.6, MCV 94.3 H, MCH 30.8, MCHC 32.7 D, RDW Std Deviation 42.7, RDW Coeff of Taran 12.3, Plt Count 264, MPV 10.0, Immature Gran % (Auto) 0.500, Neut % (Auto) 74.3 H, Lymph % (Auto) 16.1 L, [place] % (Auto) 7.1, Eos % (Auto) 1.6, Baso % (Auto) 0.4, Absolute Neuts (auto) 8.1 H, Absolute Lymphs (auto) 1.76, Nucleated RBC % 0 10/07/22 04:34: Sodium 140, Potassium 3.6, Chloride 109 H, Carbon Dioxide 25.0, Anion Gap 6, BUN 13, Creatinine 1.10, Estim Creat Clear Calc 86.52, Est GFR (MDRD) Af Amer 91, Est GFR (MDRD) Non-Af 75, BUN/Creatinine Ratio 11.8, Glucose 98, Calcium 8.3 L Radiography Diagnostic Testing: Radiology Impression Abdomen/Pelvis CT 10/06/22 15:32 IMPRESSION: 1. Left-sided small bowel distention suggestive of ileus. 2. Stable right spiculated hernia containing nonobstructed small bowel. 3. Surgical changes of total colectomy. Electronically Signed: Celso Rojo MD at 16:39 EST , KUB X-Ray 10/06/22 18:10 IMPRESSION: Findings may represent an ileus. Obstruction is not excluded. Electronically Signed: Isaac Wilson MD at 18:26 EST , Abdomen X-Ray 10/07/22 12:07 IMPRESSION: Findings suggestive of a small bowel obstruction with the transition point in the left mid abdomen. Electronically Signed: Maksim Tomas MD at 12:51 EST , Assessment & Plan Assessment/Plan (1) Small bowel obstruction due to adhesions: PLAN: The patient is unbelievably reluctant to undergo to surgery. He would like to give it 1 more day to see if anything will start to move. I am going to give him some Gastrografin to see if this helps. If no improvement is seen then he will see us more and likely need to have some form of surgical intervention.
[2022-10-07] MEDS: Ketorolac 15 MG/ML Vial IV (15:12)
[2022-10-07 17:39] VITALS: BP 115/68; PULSE 63; O2SAT 99
--- NOTE | 2022-10-07 19:03 | PCM.PN.HOSP ---
Subjective Subjective Patient was seen and examined today, he is walking in the [place], he has not had substantial output from his ileostomy however, talked briefly with general surgery about his care, they would prefer not to take the patient to surgery at this time, he is having no vomiting. Objective Data Objective Data Vital Signs: Vital Signs Temp Pulse Resp BP Pulse Ox O2 Del Method 98.5 F 63 18 115/68 99 Room Air 10/07/22 13:10 10/07/22 17:39 10/07/22 13:10 10/07/22 17:39 10/07/22 17:39 10/07/22 15:14 Oxygen Delivery Method Room Air Weight: 112.5 kg Body Mass Index (BMI) 34.5 Intake & Output: Intake and Output for Last 24 Hours 10/05/22 10/06/22 10/07/22 23:59 23:59 23:59 Intake Total 1110 / 1110 3350 / 3350 Balance 1110 / 1110 3350 / 3350 Lab / Micro Data Result Diagrams: 10/07/22 04:34 10/07/22 04:34 Labs: Laboratory Results - last 24 hr 10/07/22 04:34: WBC 10.9, RBC 4.41 L, Hgb 13.6, Hct 41.6, MCV 94.3 H, MCH 30.8, MCHC 32.7 D, RDW Std Deviation 42.7, RDW Coeff of Taran 12.3, Plt Count 264, MPV 10.0, Immature Gran % (Auto) 0.500, Neut % (Auto) 74.3 H, Lymph % (Auto) 16.1 L, [place] % (Auto) 7.1, Eos % (Auto) 1.6, Baso % (Auto) 0.4, Absolute Neuts (auto) 8.1 H, Absolute Lymphs (auto) 1.76, Nucleated RBC % 0 10/07/22 04:34: Sodium 140, Potassium 3.6, Chloride 109 H, Carbon Dioxide 25.0, Anion Gap 6, BUN 13, Creatinine 1.10, Estim Creat Clear Calc 86.52, Est GFR (MDRD) Af Amer 91, Est GFR (MDRD) Non-Af 75, BUN/Creatinine Ratio 11.8, Glucose 98, Calcium 8.3 L Radiography Diagnostic Testing: Radiology Impression Abdomen X-Ray 10/07/22 12:07 IMPRESSION: Findings suggestive of a small bowel obstruction with the transition point in the left mid abdomen. Electronically Signed: Maksim Tomas MD at 12:51 EST , Physical Exam Const alert, oriented x3, no apparent distress, average body habitus and healthy appearing General Appearance: cooperative, well kempt and well developed Orientation / Consciousness: awake, oriented to person, oriented to place and oriented to time HEENT normocephalic and moist oral mucous membranes Eyes PERRL, EOMs intact bilaterally and conjunctivae normal Neck supple, no JVD, thyroid normal and no carotid bruits General: trachea midline Resp normal respiratory effort, no retractions, no use of accessory muscles and clear to auscultation bilaterally Auscultation: Negative for rales, rhonchi or wheezes Cardio regular rate, regular rhythm, S1 normal heart sound, S2 normal heart sound, no murmurs, no rub and no gallops GI soft to palpation, non-tender and non-distended Auscultation: hypoactive bowel sounds Extremity no clubbing, cyanosis or edema Skin no rashes or lesions noted General Skin Exam: no breakdown Neuro oriented x3, CN's II-XII intact bilaterally, no focal motor deficits and no sensory deficits noted Sensorium / Orientation: awake and alert Speech: speech normal Psych affect normal Assessment & Plan Assessment/Plan (1) Small bowel obstruction due to adhesions: PLAN: Plan 1. Acute ileus/small bowel obstruction secondary to adhesion-patient will continue IV fluids, I have placed the patient on IV Reglan and ordered lactulose for the patient. General surgery is following the patient #2 ulcerative colitis by history-this appears to be stable at this time #3 history of cardiomyopathy-type unknown, patient is on carvedilol Charges/Coding Visit Charges Inpatient E&M: 78662 Subs Hosp L2
[2022-10-07] MEDS: Ondansetron 4 MG/2 ML Vial IV (20:15)
[2022-10-07 20:50] VITALS: BP 130/90; PULSE 68; RESP 18; TEMP 36.6; O2SAT 97
[2022-10-08] VITALS (17 sets, daily range): BP systolic 108–155; BP diastolic 69–96; PULSE 73–132; RESP 16–18; TEMP 36.5–37.5; O2SAT 92–97; BMI 34.6
[2022-10-08] MEDS: proCHLORPERazine 10 MG/2 ML Vial 5 MG IV ×2 (02:43→07:39)
[2022-10-08] MEDS: HYDROmorphone Inj 0.2 MG/ML SYRINGE 0.5 MG IV (02:43)
[2022-10-08] MEDS: Ondansetron 4 MG/2 ML Vial IV (04:34)
[2022-10-08] MEDS: 0.9% Normal Saline 1,000 ML 150 ML IV (04:34)
--- NOTE | 2022-10-08 06:32 | NURSING ---
NG inserted per MD request. Roughly 650cc green bile drained instantly. Patient became anxious and demanded tube be removed. Tube removed per patient request. Dr. Crzu notified.
[2022-10-08] MEDS: HYDROmorphone 0.5 MG/0.5 ML SYRINGE IV ×3 (07:39→22:13)
[2022-10-08] MEDS: Carvedilol 25 MG Tablet PO ×2 (08:09→18:18)
--- NOTE | 2022-10-08 12:00 | OM_PTH ---
PATIENT: YODIT DAWSON Jr. LOC: MS3 U#:[id number] AGE/SX: 51/M ROOM: [facility] [place] RE10/06/[address]: Dr. Kris Alan DO : 1970 BED: 1 DIS: 10/13/2022 SPEC #: [id number] RECD: 10/08/22 14:47 STATUS: JOHN REQ #: [id number] TEO: 10/08/22 12:[address]: Dieter Cruz DEPT: SURGICAL PATHOLOGY RECD BY: Angelina Calloway ENTERED: 10/09/22 09:02 SP TYPE: OMENTUM OTHR DR: Ana Rodney, INTERMEDIATE DESIGNER-C MD Dr. Luis Chamberlain DO Dr. Mark Tereletsky, DO Tissues: Omentum, NOS Procedures: Surgery Specimen Level IV Comments: @ Ordering doctor for SUIV edited from to DR.DPEABO Chaparro DE LEON at 10/09/22 1019 @ Submitting doctor edited from to DR.DPEABO Chaparro DE LEON at 10/09/22 1019 HEADER OPERATION: Exploratory laparotomy, lysis of adhesions PRE-OP DIAGNOSIS: Small bowel obstruction due to adhesions TISSUE SUBMITTED: Omentum MICROSCOPIC DIAGNOSIS Omentum, partial resection: Fibrosis and vascular ectasia. AM:francis 10/10/2022 MICROSCOPIC DESCRIPTION Slides are reviewed. GROSS DESCRIPTION Received in fixative is one container labeled with the patient's name and designated omentum. The specimen consists of an irregular fragment of yellow fatty tissue consistent with omentum measuring 17 x 6 x 2 cm. Serial sectioning reveals homogenous yellow cut surfaces. No nodules or mass lesions are identified. Organ Pipe Finisher sections are submitted in three cassettes. / AM:francis 10/09/2022 TC:5 CPT: 58221
--- NOTE | 2022-10-08 13:08 | PCM.PN.HOSP ---
Subjective Subjective Patient was seen and examined today, he has no output from his ostomy, he is scheduled for surgery with Dr. Cruz today Objective Data Objective Data Vital Signs: Vital Signs Temp Pulse Resp BP Pulse Ox O2 Del Method 97.7 F L 73 16 122/69 H 97 Room Air 10/08/22 08:02 10/08/22 08:02 10/08/22 08:02 10/08/22 08:02 10/08/22 08:02 10/08/22 08:18 Oxygen Delivery Method Room Air Weight: 112.5 kg Body Mass Index (BMI) 34.6 Intake & Output: Intake and Output for Last 24 Hours 10/06/22 10/07/22 10/08/22 23:59 23:59 23:59 Intake Total 1110 / 1110 4122.5 / 4122.5 1047.5 / 1047.5 Output Total 700 / 700 Balance 1110 / 1110 4122.5 / 3822.5 347.5 / 347.5 Lab / Micro Data Result Diagrams: 10/07/22 04:34 10/07/22 04:34 Physical Exam Const alert, oriented x3, no apparent distress and healthy appearing General Appearance: cooperative, well kempt and well developed Orientation / Consciousness: awake, oriented to person, oriented to place and oriented to time HEENT normocephalic and moist oral mucous membranes Eyes PERRL, EOMs intact bilaterally and conjunctivae normal Neck supple, no JVD, thyroid normal and no carotid bruits General: trachea midline Resp normal respiratory effort and clear to auscultation bilaterally Auscultation: Negative for rales, rhonchi or wheezes Cardio regular rate, regular rhythm, no murmurs, no rub and no gallops GI soft to palpation and non-tender GI Narrative: Abdomen is distended and tympanic, bowel sounds are diminished Extremity no clubbing, cyanosis or edema Skin no rashes or lesions noted General Skin Exam: no breakdown Neuro oriented x3, CN's II-XII intact bilaterally, no focal motor deficits and no sensory deficits noted Sensorium / Orientation: awake and alert Speech: speech normal Psych affect normal Assessment & Plan Assessment/Plan (1) Small bowel obstruction due to adhesions: PLAN: Plan 1. Acute ileus/small bowel obstruction secondary to adhesion-patient will continue IV fluids, patient is scheduled for an exploratory laparotomy today #2 ulcerative colitis by history-this appears to be stable at this time #3 history of cardiomyopathy-type unknown, patient is on carvedilol Charges/Coding Visit Charges Inpatient E&M: 98133 Subs Hosp L2
[2022-10-08] MEDS: Bupivacaine 0.25% 30 ML Vial (13:45)
--- NOTE | 2022-10-08 13:50 | OP.PCM_ITS ---
Problems Associated Problem List Diagnoses (1) Small bowel obstruction due to adhesions: (2) Incarcerated incisional hernia: Report of Operation Date of Procedure: 10/08/22 Pre-Operative Diagnosis: Small bowel obstruction Post-Operative Diagnosis: Same Surgery/Procedure Performed:: 1. Exploratory laparotomy lysis of adhesions 2. Repair of an incarcerated incisional hernia 3. Repair of serosal injury of small intestine Surgeon: Dieter Cruz business services assistant: Faye Salmeron Anesthesiologist: Luis Levine Specimen's removed: Omentum Estimated Blood Loss (mL): < 100 cc Fluids Replaced: 750 cc LR Description of Procedure: Patient was brought into the operating room. Placed in the supine position. Under excellent general anesthetic I put a tense tendons around his ileostomy the abdomen was then sterilely prepped and draped in the usual fashion making sure to staple the drape away from the ileostomy. Midline incision was started in the upper abdomen came down to the right side of the umbilicus. Patient was noted to have proximal dilated small bowel which I came down this looked to be a source of an old piece of omentum that was adherent into the pelvis. As I detached this omentum it started to free up the dilated portion of the small bowel. I needed to do further dissection going down towards the pelvis to bring up all the dilated loops of small bowel after I did this everything distal to the adhesions was decompressed I milked back all the fluid into the stomach and the OG took out approximately 2 L of greenish fluid. I then inspected the right lower quadrant patient had a previous ileostomy and small bowel was stuck in this. I thought that this could also be a potential source for small bowel obstruction so I took the small bowel out of this hernia. I had no enterotomies but the serosa did look slightly thin and so I plicated this with interrupted 3 oh silks. Once this was done I ran the small bowel down into the pelvis there was still significant amount of adhesions in the pelvis but I did not think that doing any further dissection down there was going to eliminate any other bowel obstructions. I thought the best case here was to do no more surgery on him. I reinspected the serosal injury it look good the small bowel was not narrowed in any way. I ran the small bowel again from there all the way up to the ligament of Treitz everything was viable there is no signs of any serosal injuries. OG was removed and an NG tube was placed a palpated the stomach to make sure it was in good position. We got an accurate needle and sponge count. The abdomen was then closed fascial layer with #1 PDS subcu and deep dermal layers of 3-0 GI silk then a running 4-0 Monocryl on the skin Steri-Strips were applied sterile dressings were applied and the patient tolerated the procedure well. Admit VTE Documentation VTE Present on Admission: No VTE Mechan Device Prophylaxis: SCD's VTE Pharm Prophylaxis ordered?: No Reason prophylaxis not ordered:: Treatment Not Indicated
[2022-10-08] MEDS: Lactated Ringers 1,000 ML 15 ML IV (17:32)
[2022-10-08] MEDS: 0.9% Normal Saline 1,000 ML 80 ML IV (18:17)
[2022-10-08] MEDS: Metoclopramide 10 MG/2 ML Vial 5 MG IV ×2 (18:36→23:44)
[2022-10-08] MEDS: 0.9% Saline Lock 10 ML Syringe IV (22:16)
[2022-10-09] VITALS (7 sets, daily range): BP systolic 115–135; BP diastolic 72–92; PULSE 88–116; RESP 16–18; TEMP 36.6–36.9; O2SAT 92–97
[2022-10-09] MEDS: HYDROmorphone 0.5 MG/0.5 ML SYRINGE IV ×5 (00:24→20:56)
[2022-10-09] MEDS: Metoclopramide 10 MG/2 ML Vial 5 MG IV ×4 (05:22→23:45)
[2022-10-09] MEDS: 0.9% Normal Saline 1,000 ML 80 ML IV ×2 (05:34→17:16)
[2022-10-09 07:01] LABS: Absolute Lymphocyte Count 1.62 X10^3/uL (0.83-4.51); Absolute Neutrophil Count 8.7 X10^3/uL (2.0-7.7); Basophil# 0.03 X10^3/uL; Basophil% 0.3 % (0-1); Eosinophil# 0.04 X10^3/uL; Eosinophils% 0.3 % (0-5); Hematocrit 45.8 % (40-54); Hemoglobin 15.4 g/dL (13.0-16.5); Lymphocyte # 1.62 X10^3/ul (0.83-4.51); Mean Corp Hgb Conc 33.6 g/dL (32-36); Mean Platelet Vol. 9.9 fl (6.2-12.0); Monocyte# 1.18 X10^3/uL; Monocyte% 10.2 % (0-10); NRBC Flagged by Analyzer 0 % (0-5); Neutrophil # 8.65 X10^3/uL (2.7-7.7); Neutrophil % 74.9 % (47-70); Platelet Count 298 K/mm3 (150-450); RBC Distribution Width CV 12.4 % (11.6-14.6); RBC Distribution Width SD 43.3 fl (35.1-43.9); Red Blood Count 4.82 M/mm3 (4.6-6.2); White Blood Count 11.6 K/mm3 (4.4-11.0)
[2022-10-09 07:20] LABS: Anion Gap 6 (5-15); BUN 12 mg/dL (7-18); Calcium,Total 8.8 mg/dL (8.5-10.1); Chloride 109 mmol/L (98-107); Creatinine, Serum 1.33 mg/dL (0.70-1.30); EST Glomerular Filtration Rate 61 mL/min (>60); Est Glom Filt Rate - Afr Amer 73 mL/min (>60); Estimated Creatinine Clearance 71.56 ml/min; Glucose 115 mg/dL (74-106); Potassium 3.8 mmol/L (3.5-5.1); Sodium Level 140 mmol/L (136-145)
--- NOTE | 2022-10-09 07:29 | PCM.PN.SRG ---
Subjective Subjective patient appears comfortable, states that he has already ambulated x 3 notes no output per ostomy - is well aware of his function capabilities as he states he has had numerous surgeries in past - he states Objective Data Objective Data Vital Signs: Vital Signs Temp Pulse Resp BP Pulse Ox O2 Del Method O2 Flow Rate 98.5 F 101 H 18 129/92 H 97 Nasal Cannula 2 10/09/22 06:12 10/09/22 06:12 10/09/22 06:12 10/09/22 06:12 10/09/22 06:12 10/09/22 06:12 10/09/22 06:12 Oxygen Flow Rate (L/min) 2 Oxygen Delivery Method Nasal Cannula Weight: 112.5 kg Body Mass Index (BMI) 34.6 Intake & Output: Intake and Output for Last 24 Hours 10/07/22 10/08/22 10/09/22 23:59 23:59 23:59 Intake Total 4122.5 / 4122.5 1186.75 / 1186.75 1076.92 / 1076.92 Output Total 700 / 1550 1050 / 1050 Balance 4122.5 / 3822.5 486.75 / -363.25 26.92 / 26.92 Lab / Micro Data Attestation: I reviewed the patient's lab results. Result Diagrams: 10/09/22 05:50 10/09/22 05:50 Labs: Laboratory Results - last 24 hr 10/09/22 05:50: WBC 11.6 H, RBC 4.82, Hgb 15.4, Hct 45.8, MCV 95.0 H, MCH 32.0, MCHC 33.6, RDW Std Deviation 43.3, RDW Coeff of Taran 12.4, Plt Count 298, MPV 9.9, Immature Gran % (Auto) 0.300, Neut % (Auto) 74.9 H, Lymph % (Auto) 14.0 L, [place] % (Auto) 10.2 H, Eos % (Auto) 0.3, Baso % (Auto) 0.3, Absolute Neuts (auto) 8.7 H, Absolute Lymphs (auto) 1.62, Nucleated RBC % 0 10/09/22 05:50: Sodium 140, Potassium 3.8, Chloride 109 H, Carbon Dioxide 25.0, Anion Gap 6, BUN 12, Creatinine 1.33 H, Estim Creat Clear Calc 71.56, Est GFR (MDRD) Af Amer 73, Est GFR (MDRD) Non-Af 61, BUN/Creatinine Ratio 9.0 L, Glucose 115 H, Calcium 8.8 Physical Exam Const alert and oriented x3 General Appearance: comfortable Neck supple Resp normal respiratory effort and normal air movement Effort and Inspection: able to speak in complete sentences GI GI Narrative: abdomen is soft and benign appropriate incisional tenderness dressing intact without seepage Assessment & Plan Assessment/Plan (1) Status post abdominal surgery, follow-up exam: PLAN: patient doing well post operatively without concerning features initially stated the he should be on a bland diet, but then when asked, he states that this can begin in 2-3 days (seemingly wants to dictate his postoperative course) continue present therapy PLAN: Plan see above
[2022-10-09] MEDS: 0.9% Saline Lock 10 ML Syringe IV (10:11)
[2022-10-09] MEDS: Carvedilol 25 MG Tablet PO ×2 (12:48→20:56)
[2022-10-09] MEDS: Ketorolac 15 MG/ML Vial IV (12:57)
--- NOTE | 2022-10-09 16:26 | PCM.PN.HOSP ---
Subjective Subjective Patient was seen and examined today,, he has not had significant output into his ileostomy bag, patient states he has been walking in the [place], he does have an NG tube. Objective Data Objective Data Vital Signs: Vital Signs Temp Pulse Resp BP Pulse Ox O2 Del Method O2 Flow Rate 97.8 F 101 H 16 115/77 92 Room Air 2 10/09/22 14:26 10/09/22 14:26 10/09/22 14:26 10/09/22 14:26 10/09/22 14:26 10/09/22 14:26 10/09/22 14:26 Oxygen Flow Rate (L/min) 2 Oxygen Delivery Method Room Air Weight: 112.5 kg Body Mass Index (BMI) 34.6 Intake & Output: Intake and Output for Last 24 Hours 10/07/22 10/08/22 10/09/22 23:59 23:59 23:59 Intake Total 4122.5 / 4122.5 1186.75 / 1186.75 1784.92 / 1784.92 Output Total 700 / 1550 1700 / 1700 Balance 4122.5 / 3822.5 486.75 / -363.25 84.92 / 84.92 Lab / Micro Data Result Diagrams: 10/09/22 05:50 10/09/22 05:50 Labs: Laboratory Results - last 24 hr 10/09/22 05:50: WBC 11.6 H, RBC 4.82, Hgb 15.4, Hct 45.8, MCV 95.0 H, MCH 32.0, MCHC 33.6, RDW Std Deviation 43.3, RDW Coeff of [place] 12.4, Plt Count 298, MPV 9.9, Immature Gran % (Auto) 0.300, Neut % (Auto) 74.9 H, Lymph % (Auto) 14.0 L, [place] % (Auto) 10.2 H, Eos % (Auto) 0.3, Baso % (Auto) 0.3, Absolute Neuts (auto) 8.7 H, Absolute Lymphs (auto) 1.62, Nucleated RBC % 0 10/09/22 05:50: Sodium 140, Potassium 3.8, Chloride 109 H, Carbon Dioxide 25.0, Anion Gap 6, BUN 12, Creatinine 1.33 H, Estim Creat Clear Calc 71.56, Est GFR (MDRD) Af Amer 73, Est GFR (MDRD) Non-Af 61, BUN/Creatinine Ratio 9.0 L, Glucose 115 H, Calcium 8.8 Physical Exam Const alert, oriented x3, no apparent distress, average body habitus and healthy appearing General Appearance: cooperative, well kempt and well developed Orientation / Consciousness: awake, oriented to person, oriented to place and oriented to time HEENT normocephalic, head/scalp atraumatic and moist oral mucous membranes Eyes PERRL, EOMs intact bilaterally and conjunctivae normal Neck supple, no JVD, thyroid normal and no carotid bruits General: trachea midline Resp normal respiratory effort, no retractions, no use of accessory muscles and clear to auscultation bilaterally Auscultation: Negative for rales, rhonchi or wheezes Cardio regular rate, regular rhythm, S1 normal heart sound, S2 normal heart sound, no murmurs, no rub and no gallops GI GI Narrative: Abdomen is mildly distended, it is tympanic, bowel sounds are sparse, ileostomy bag is present Extremity no clubbing, cyanosis or edema Skin no rashes or lesions noted General Skin Exam: no breakdown Neuro oriented x3, CN's II-XII intact bilaterally, moves all extremities, no focal motor deficits and no sensory deficits noted Sensorium / Orientation: awake and alert Speech: speech normal Psych affect normal Assessment & Plan Assessment/Plan (1) Small bowel obstruction due to adhesions: PLAN: Plan 1. Acute ileus/small bowel obstruction secondary to adhesion-postop day #1 laparotomy with lysis of adhesions, continue postop care per general surgery, patient still has an NG tube in. #2 ulcerative colitis by history-this appears to be stable at this time #3 history of cardiomyopathy-type unknown, patient is on carvedilol Charges/Coding Visit Charges Inpatient E&M: 17291 Subs Hosp L2
[2022-10-10] VITALS (7 sets, daily range): BP systolic 122–137; BP diastolic 79–90; PULSE 93–114; RESP 16–20; TEMP 36.5–37.2; O2SAT 92–95
[2022-10-10] MEDS: HYDROmorphone 0.5 MG/0.5 ML SYRINGE IV ×4 (04:54→21:13)
[2022-10-10] MEDS: 0.9% Normal Saline 1,000 ML 80 ML IV ×2 (05:01→18:28)
[2022-10-10] MEDS: Metoclopramide 10 MG/2 ML Vial 5 MG IV ×3 (05:03→18:22)
--- NOTE | 2022-10-10 06:57 | PCM.PN.SRG ---
Subjective Subjective patient notes gas in his ostomy bag, feels hungry, minimal pain except for incisional ambulating well Objective Data Objective Data Vital Signs: Vital Signs Temp Pulse Resp BP Pulse Ox O2 Del Method O2 Flow Rate 99 F 98 16 123/81 H 92 Room Air 2 10/10/22 02:00 10/10/22 02:00 10/10/22 02:00 10/10/22 02:00 10/10/22 02:00 10/10/22 02:00 10/10/22 02:00 Oxygen Flow Rate (L/min) 2 Oxygen Delivery Method Room Air Weight: 112.5 kg Body Mass Index (BMI) 34.6 Intake & Output: Intake and Output for Last 24 Hours 10/08/22 10/09/22 10/10/22 23:59 23:59 23:59 Intake Total 1186.75 / 1186.75 2556.25 / 2556.25 1020 / 1020 Output Total 700 / 1550 3790 / 3790 1700 / 1700 Balance 486.75 / -363.25 -1233.75 / -1233.75 -680 / -680 Lab / Micro Data Attestation: I reviewed the patient's lab results. Result Diagrams: 10/09/22 05:50 10/09/22 05:50 Labs: Laboratory Results - last 24 hr 10/09/22 05:50: WBC 11.6 H, RBC 4.82, Hgb 15.4, Hct 45.8, MCV 95.0 H, MCH 32.0, MCHC 33.6, RDW Std Deviation 43.3, RDW Coeff of Taran 12.4, Plt Count 298, MPV 9.9, Immature Gran % (Auto) 0.300, Neut % (Auto) 74.9 H, Lymph % (Auto) 14.0 L, [place] % (Auto) 10.2 H, Eos % (Auto) 0.3, Baso % (Auto) 0.3, Absolute Neuts (auto) 8.7 H, Absolute Lymphs (auto) 1.62, Nucleated RBC % 0 10/09/22 05:50: Sodium 140, Potassium 3.8, Chloride 109 H, Carbon Dioxide 25.0, Anion Gap 6, BUN 12, Creatinine 1.33 H, Estim Creat Clear Calc 71.56, Est GFR (MDRD) Af Amer 73, Est GFR (MDRD) Non-Af 61, BUN/Creatinine Ratio 9.0 L, Glucose 115 H, Calcium 8.8 Physical Exam Const alert and oriented x3 General Appearance: comfortable HEENT normocephalic Neck supple Resp normal respiratory effort Effort and Inspection: able to speak in complete sentences GI GI Narrative: abdomen is soft and benign dressing intact with no seepage Assessment & Plan Assessment/Plan (1) Status post abdominal surgery, follow-up exam: PLAN: POD#2 s/p xlap/THADDEUS I don't want to completely remove NG tube, as I believe there is still too much output, but patient is anxious to progress Will clamp NG tube and see how he does continue present therapy PLAN: Plan see above
[2022-10-10] MEDS: Carvedilol 25 MG Tablet PO ×2 (08:07→18:22)
[2022-10-10] MEDS: LACTATED RINGERS 500 ML 999 ML IV (08:19)
--- NOTE | 2022-10-10 08:35 | NURSING ---
NG clamped at 0750am this morning. Eating clear liquid breakfast.
[2022-10-10] MEDS: 0.9% Saline Lock 10 ML Syringe IV ×3 (09:07→15:47)
[2022-10-10] MEDS: Ketorolac 10 MG Tablet PO (13:00)
--- NOTE | 2022-10-10 14:16 | PCM.PN.HOSP ---
Subjective Subjective Patient was seen and examined today, he still has the NG tube in, his abdomen is still mildly distended, bowel sounds are sparse. There is some output in his ileostomy bag. Objective Data Objective Data Vital Signs: Vital Signs Temp Pulse Resp BP Pulse Ox O2 Del Method O2 Flow Rate 97.7 F L 114 H 18 122/90 H 93 Room Air 2 10/10/22 10:42 10/10/22 10:42 10/10/22 10:42 10/10/22 10:42 10/10/22 10:42 10/10/22 10:42 10/10/22 10:42 Oxygen Flow Rate (L/min) 2 Oxygen Delivery Method Room Air Weight: 112.5 kg Body Mass Index (BMI) 34.6 Intake & Output: Intake and Output for Last 24 Hours 10/08/22 10/09/22 10/10/22 23:59 23:59 23:59 Intake Total 1186.75 / 1186.75 2556.25 / 2556.25 33 / 1996.33 Output Total 700 / 1550 3790 / 3790 1700 / 1700 Balance 486.75 / -363.25 -1233.75 / -1233.75 297.33 / 297.33 Lab / Micro Data Result Diagrams: 10/09/22 05:50 10/09/22 05:50 Physical Exam Narrative alert, oriented x3, no apparent distress, average body habitus and healthy appearing General Appearance: cooperative, well kempt and well developed Orientation / Consciousness: awake, oriented to person, oriented to place and oriented to time HEENT normocephalic, head/scalp atraumatic and moist oral mucous membranes Eyes PERRL, EOMs intact bilaterally and conjunctivae normal Neck supple, no JVD, thyroid normal and no carotid bruits General: trachea midline Resp normal respiratory effort, no retractions, no use of accessory muscles and clear to auscultation bilaterally Auscultation: Negative for rales, rhonchi or wheezes Cardio regular rate, regular rhythm, S1 normal heart sound, S2 normal heart sound, no murmurs, no rub and no gallops GI GI Narrative: Abdomen is mildly distended, it is tympanic, bowel sounds are sparse, ileostomy bag is present Extremity no clubbing, cyanosis or edema Skin no rashes or lesions noted General Skin Exam: no breakdown Neuro oriented x3, CN's II-XII intact bilaterally, moves all extremities, no focal motor deficits and no sensory deficits noted Sensorium / Orientation: awake and alert Speech: speech normal Psych affect normal Assessment & Plan Assessment/Plan (1) Small bowel obstruction due to adhesions: PLAN: Plan 1. Acute ileus/small bowel obstruction secondary to adhesion-postop day #2 laparotomy with lysis of adhesions, continue postop care per general surgery, patient still has an NG tube in. #2 ulcerative colitis by history-this appears to be stable at this time #3 history of cardiomyopathy-type unknown, patient is on carvedilol Charges/Coding Visit Charges Inpatient E&M: 55747 Subs Hosp L2
--- NOTE | 2022-10-10 15:36 | NURSING ---
Stomach distended more then it was earlier around noon. Pt having nausea and more pain. Toradol po pt feels did not seem to work. This Nurse hooked Pt's NG tube back to suction at this time.
--- NOTE | 2022-10-10 16:15 | NURSING ---
Pt called this RN stated he thinks he needs to be hooked up back to suction. This RN in to see pt and to assess. Abd distended more then it was, Pt nauseated and having abd pain. This RN hooked back up to suction at approximately 1530. Total amt of Drainage is 1650cc since hooked back up. Dr. Lockhart just made aware via phone and is okay with pt being back LIWS and wants his diet back to NPO except ice chips.
[2022-10-11] VITALS (7 sets, daily range): BP systolic 119–135; BP diastolic 54–89; PULSE 82–90; RESP 14–18; TEMP 36.4–36.9; O2SAT 94–96
[2022-10-11] MEDS: Metoclopramide 10 MG/2 ML Vial 5 MG IV ×4 (00:15→17:28)
[2022-10-11] MEDS: HYDROmorphone 0.5 MG/0.5 ML SYRINGE IV (04:44)
[2022-10-11] MEDS: 0.9% Normal Saline 1,000 ML 80 ML IV ×2 (05:35→17:29)
--- NOTE | 2022-10-11 06:57 | PCM.PN.SRG ---
Subjective Subjective attempted clamp NG tube yesterday, but patient had episode of emesis and with NG tube hooked back up to suction about 1500 ml was obtained patient wants NG tube out, but I told him that it would need to stay in - he is difficult to deal with - I told him that we could trial the NG tube out, but if he has emesis it would need to be replaced also the NG tube has been inching out, but he refuses to let nurses to slide it back in He states that once the NG tube is out, it stays out He was hoping to go home tomorrow continue NG tube decompression, IV hydration, NPO Objective Data Objective Data Vital Signs: Vital Signs Temp Pulse Resp BP Pulse Ox O2 Del Method O2 Flow Rate 98.1 F 90 18 135/80 H 95 Room Air 2 10/11/22 03:00 10/11/22 03:00 10/11/22 03:00 10/11/22 03:00 10/11/22 03:00 10/11/22 03:00 10/10/22 16:06 Oxygen Flow Rate (L/min) 2 Oxygen Delivery Method Room Air Weight: 112.5 kg Body Mass Index (BMI) 34.6 Intake & Output: Intake and Output for Last 24 Hours 10/09/22 10/10/22 10/11/22 23:59 23:59 23:59 Intake Total 2556.25 / 2556.25 3024.66 / 3124.66 1039.33 / 1039.33 Output Total 3790 / 3790 3800 / 6050 3450 / 3450 Balance -1233.75 / -1233.75 -775.34 / -2925.34 -2410.67 / -2410.67 Lab / Micro Data Result Diagrams: 10/09/22 05:50 10/09/22 05:50 Assessment & Plan Assessment/Plan (1) Status post abdominal surgery, follow-up exam: PLAN: I have told patient that I recommend NG tube to remain in, until output decreases, he reluctantly agrees Continue present therapy PLAN: Plan see above
[2022-10-11] MEDS: Carvedilol 25 MG Tablet PO ×2 (09:50→17:28)
--- NOTE | 2022-10-11 12:53 | NURSING ---
pt states that n/g Fell out during pt shower-dr hannah notified-
--- NOTE | 2022-10-11 12:59 | NURSING ---
Entered the patients room, NG was removed by patient. Patient stated that NG tube came out during shower. Doctor was notified by charge nurse.
[2022-10-11] MEDS: 0.9% Saline Lock 10 ML Syringe IV (13:05)
--- NOTE | 2022-10-11 15:26 | PCM.PN.HOSP ---
Subjective Subjective Was seen and examined today, he states he is having output in his ileostomy bag. Patient remains with NG tube placed. Objective Data Objective Data Vital Signs: Vital Signs Temp Pulse Resp BP Pulse Ox O2 Del Method O2 Flow Rate 97.6 F L 90 18 119/82 H 95 Room Air 2 10/11/22 12:20 10/11/22 12:20 10/11/22 12:20 10/11/22 12:20 10/11/22 12:20 10/11/22 12:20 10/10/22 16:06 Oxygen Flow Rate (L/min) 2 Oxygen Delivery Method Room Air Weight: 112.491 kg Body Mass Index (BMI) 34.6 Intake & Output: Intake and Output for Last 24 Hours 10/09/22 10/10/22 10/11/22 23:59 23:59 23:59 Intake Total 2556.25 / 2556.25 3024.66 / 3124.66 1319.33 / 1319.33 Output Total 3790 / 3790 3800 / 6050 4750 / 4750 Balance -1233.75 / -1233.75 -775.34 / -2925.34 -3430.67 / -3430.67 Lab / Micro Data Result Diagrams: 10/09/22 05:50 10/09/22 05:50 Physical Exam Const alert, oriented x3, no apparent distress, average body habitus and healthy appearing General Appearance: cooperative, well kempt and well developed Orientation / Consciousness: awake, oriented to person, oriented to place and oriented to time HEENT normocephalic, head/scalp atraumatic and moist oral mucous membranes Eyes PERRL, EOMs intact bilaterally and conjunctivae normal Neck supple, no JVD, thyroid normal and no carotid bruits General: trachea midline Resp normal respiratory effort, no retractions, no use of accessory muscles and clear to auscultation bilaterally Auscultation: Negative for rales, rhonchi or wheezes Cardio regular rate, regular rhythm, S1 normal heart sound, S2 normal heart sound, no murmurs, no rub and no gallops GI soft to palpation and non-tender GI Narrative: Patient has mild abdominal distention, bowel sounds are present Extremity no clubbing, cyanosis or edema Skin no rashes or lesions noted General Skin Exam: no breakdown Neuro oriented x3, CN's II-XII intact bilaterally, moves all extremities, no focal motor deficits and no sensory deficits noted Sensorium / Orientation: awake, alert, oriented to person, oriented to place and oriented to time Speech: speech normal Psych affect normal Assessment & Plan Assessment/Plan (1) Small bowel obstruction due to adhesions: PLAN: Plan 1. Acute ileus/small bowel obstruction secondary to adhesion-postop day #3 laparotomy with lysis of adhesions, continue postop care per general surgery, patient still has an NG tube in. #2 ulcerative colitis by history-this appears to be stable at this time #3 history of cardiomyopathy-type unknown, patient is on carvedilol Charges/Coding Visit Charges Inpatient E&M: 73227 Subs Hosp L2
[2022-10-12] MEDS: 0.9% Normal Saline 1,000 ML 80 ML IV (01:24)
[2022-10-12] MEDS: HYDROmorphone 0.5 MG/0.5 ML SYRINGE IV ×3 (01:26→23:23)
[2022-10-12] MEDS: Metoclopramide 10 MG/2 ML Vial 5 MG IV ×5 (01:28→22:59)
[2022-10-12 04:30] VITALS: BP 119/82; PULSE 83; RESP 18; TEMP 36.8; O2SAT 96
[2022-10-12 05:43] VITALS: BP 119/82; PULSE 83; RESP 18; TEMP 36.8; O2SAT 96
[2022-10-12 07:30] VITALS: O2SAT 95
[2022-10-12] MEDS: LACTATED RINGERS 500 ML 999 ML IV (08:50)
--- NOTE | 2022-10-12 09:01 | PCM.PN.SRG ---
Subjective Subjective NG tube inadvertantly removed during patient's shower and he did not want it replaced patient has return of bowel function this morning with large amount of gas and fecal material in the bag patient complains only of incisional pain he is concerned about his dark urine and decreased urine output, he did respond well to IV bolus of fluid that was given Objective Data Objective Data Vital Signs: Vital Signs Temp Pulse Resp BP Pulse Ox O2 Del Method O2 Flow Rate 98.2 F 83 18 119/82 H 95 Room Air 2 10/12/22 05:43 10/12/22 05:43 10/12/22 05:43 10/12/22 05:43 10/12/22 07:30 10/12/22 07:30 10/10/22 16:06 Oxygen Flow Rate (L/min) 2 Oxygen Delivery Method Room Air Weight: 113.3 kg Body Mass Index (BMI) 34.6 Intake & Output: Intake and Output for Last 24 Hours 10/10/22 10/11/22 10/12/22 23:59 23:59 23:59 Intake Total 3024.66 / 3124.66 2321.33 / 2321.33 683.33 / 683.33 Output Total 3800 / 6050 4750 / 4750 Balance -775.34 / -2925.34 -2428.67 / -2428.67 683.33 / 683.33 Lab / Micro Data Attestation: I reviewed the patient's lab results. Result Diagrams: 10/09/22 05:50 10/09/22 05:50 Physical Exam Const alert and oriented x3 General Appearance: cooperative HEENT normocephalic Neck supple Resp normal respiratory effort Effort and Inspection: able to speak in complete sentences GI GI Narrative: abdomen is soft and benign gas and fecal material in bag wound is clean dry and intact Assessment & Plan Assessment/Plan (1) Status post abdominal surgery, follow-up exam: PLAN: see below PLAN: Plan will given IV fluid bolus check UA advance diet from GI standpoint, patient can probable be discharged to home later today, if tolerates diet
[2022-10-12 09:02] VITALS: BP 129/84; PULSE 101; RESP 18; TEMP 36.6; O2SAT 94
[2022-10-12] MEDS: Carvedilol 25 MG Tablet PO ×2 (09:06→18:35)
[2022-10-12 09:11] LABS: Color, Urine Yellow (Yellow); Glucose, Dipstick Normal (Normal); Ketone-Dipstick 50 mg/dl (Negative); Leukocyte Esterase-Dipstick 25 /ul (Negative); Nitrite-Dipstick Negative (Negative); Occult Blood-Urine 50 /ul (Negative); Protein-Dipstick 30 mg/dl (Negative); Urine Clarity Clear (Clear); Urine Urobilinogen Normal (Normal)
[2022-10-12 09:14] LABS: Urine Bilirubin Dipstick 1 mg/dL (Negative)
[2022-10-12] MEDS: 0.9% Normal Saline 1,000 ML 125 ML IV ×2 (10:25→18:31)
--- NOTE | 2022-10-12 12:52 | PCM.PN.HOSP ---
Subjective Subjective Patient was seen and examined today, he states he is having output from his colostomy bag and he does not complain of any abdominal discomfort. Patient also stated though that he feels he wants to stay in the hospital until tomorrow because he is afraid of going home and having a problem. Objective Data Objective Data Vital Signs: Vital Signs Temp Pulse Resp BP Pulse Ox O2 Del Method O2 Flow Rate 97.8 F 101 H 18 129/84 H 94 Room Air 2 10/12/22 09:02 10/12/22 09:02 10/12/22 09:02 10/12/22 09:02 10/12/22 09:02 10/12/22 09:20 10/10/22 16:06 Oxygen Flow Rate (L/min) 2 Oxygen Delivery Method Room Air Weight: 113.3 kg Body Mass Index (BMI) 34.6 Intake & Output: Intake and Output for Last 24 Hours 10/10/22 10/11/22 10/12/22 23:59 23:59 23:59 Intake Total 3024.66 / 3124.66 2321.33 / 2321.33 195.66 / 1953.66 Output Total 3800 / 6050 4750 / 4750 Balance -775.34 / -2925.34 -2428.67 / -2428.67 195.66 / 195.66 Lab / Micro Data Result Diagrams: 10/09/22 05:50 10/09/22 05:50 Labs: Laboratory Results - last 24 hr 10/12/22 08:50: Urine Color Yellow, Urine Clarity Clear, Urine pH 5.0, Ur Specific [place] 1.020, Urine Protein 30 H, Urine Glucose (UA) Normal, Urine Ketones 50 H, Urine Occult Blood 50 H, Urine Nitrite Negative, Urine Bilirubin 1 H, Urine Urobilinogen Normal, Ur Leukocyte Esterase 25 H Physical Exam Const alert, oriented x3, no apparent distress, average body habitus and healthy appearing General Appearance: cooperative, well kempt and well developed Orientation / Consciousness: awake, oriented to person, oriented to place and oriented to time HEENT normocephalic, head/scalp atraumatic and moist oral mucous membranes Eyes PERRL, EOMs intact bilaterally and conjunctivae normal Neck supple, no JVD, thyroid normal and no carotid bruits General: trachea midline Resp normal respiratory effort, no retractions, no use of accessory muscles and clear to auscultation bilaterally Auscultation: Negative for rales, rhonchi or wheezes Cardio regular rate, regular rhythm, S1 normal heart sound, S2 normal heart sound, no murmurs, no rub and no gallops GI normal to inspection, nondistended, normoactive bowel sounds, soft to palpation, non-tender and non-distended GI Narrative: Ileostomy bag is in place Extremity no clubbing, cyanosis or edema Skin no rashes or lesions noted General Skin Exam: no breakdown Neuro oriented x3, CN's II-XII intact bilaterally, no focal motor deficits and no sensory deficits noted Sensorium / Orientation: awake, alert, oriented to person, oriented to place and oriented to time Speech: speech normal Psych affect normal Assessment & Plan Assessment/Plan (1) Small bowel obstruction due to adhesions: PLAN: Plan 1. Acute ileus/small bowel obstruction secondary to adhesion-postop day #4 laparotomy with lysis of adhesions, continue postop care per general surgery, patient still has an NG tube in. #2 ulcerative colitis by history-this appears to be stable at this time #3 history of cardiomyopathy-type unknown, patient is on carvedilol Charges/Coding Visit Charges Inpatient E&M: 53361 Subs Hosp L2
[2022-10-12 16:04] VITALS: BP 149/90; PULSE 96; RESP 18; TEMP 37.2; O2SAT 100
[2022-10-12 16:15] VITALS: BP 149/90; PULSE 96; RESP 18; TEMP 37.2; O2SAT 100
[2022-10-13] MEDS: 0.9% Normal Saline 1,000 ML 125 ML IV (01:46)
[2022-10-13 03:30] VITALS: BP 117/76; PULSE 79; RESP 16; TEMP 36.8; O2SAT 97
[2022-10-13 03:53] VITALS: BP 117/76; PULSE 79; RESP 16; TEMP 36.8; O2SAT 97
[2022-10-13] MEDS: Metoclopramide 10 MG/2 ML Vial 5 MG IV (05:54)
[2022-10-13 07:12] VITALS: O2SAT 97
[2022-10-13] MEDS: Carvedilol 25 MG Tablet PO (08:01)
[2022-10-13 08:13] VITALS: BP 108/51; PULSE 68; RESP 18; TEMP 36.5; O2SAT 97
--- NOTE | 2022-10-13 09:08 | DCINST_ITS ---
Discharge Instructions Diet Discharge Diet: No restrictions Activity Discharge Activity: Return to Normal Activity Weight Bearing Status: Full weight bearing Follow Up Care Test Results: Test results from this visit will be discussed in further detail at your follow- up appointment, if applicable. Discharge Plan Admission Admit Date/Time: 10/06/22 18:56 Primary Reason for Your Visit: small bowel obstruction Attending Provider: Kris Alan Primary Care Provider: Ana Rodney Consulting Providers: Dieter Cruz ; Luis Cochran Discharge Orders/Prescriptions Prescriptions: Continued carvedilol 25 mg tablet 25 mg PO BID Label Comments: Take 1 tablet by mouth twice daily with meals. multivit,tx w/iron (hematinic) Tablet 1 tab PO DAILY cholecalciferol (vitamin D3) [Vitamin D3] 50 mcg (2,000 unit) Tablet 50 mcg PO DAILY Referrals / Follow Up: Ana Rodney, PRODUCT SAFETY PROFESSIONAL-C [Primary Care Provider] - Dieter Cruz MD [Med Staff - Active Staff] - See Referral Note (in two weeks- call for an appointment) Care Physician,No Primary [Non-Staff] - Disposition Disposition (needs filled in before D/C Order can be placed): Home, Self Care
--- NOTE | 2022-10-13 09:13 | PCM.DC.SUM ---
Providers Date of Admission: 10/06/22 Date of Discharge: 10/13/22 Primary Care Physician: MARK Love Consultations 10/06/22 20:14 Consult: General Surgery Routine Consulting Provider: Dieter Cruz Reason for Consult: ileus EMERGENT Consult: No MD Notified: Yes Date Notified: 10/06/22 Time Notified: 19:01 Method of Notification: Verbal Reason For Visit: ILEUS Diagnosis Discharge Diagnosis (1) Small bowel obstruction due to adhesions: Status: Acute Code(s): K56.50 - Intestinal adhesions [bands], unspecified as to partial versus complete obstruction Plan 1. Acute ileus/small bowel obstruction secondary to adhesion-postop day #4 laparotomy with lysis of adhesions, continue postop care per general surgery, patient still has an NG tube in. #2 ulcerative colitis by history-this appears to be stable at this time #3 history of cardiomyopathy-type unknown, patient is on carvedilol Medications at Discharge Home Medications carvedilol 25 mg tablet 25 mg PO BID 10/06/22 cholecalciferol (vitamin D3) 50 mcg (2,000 unit) tablet (Vitamin D3) 50 mcg PO DAILY vitamins 10/06/22 multivit,tx w/iron (hematinic) 1 tab PO DAILY 10/06/22 Hospital Course Operations - (Exploratory laparotomy and lysis of adhesions, repair of incarcerated incisional hernia, repair of serosal injury of small intestine) Procedures None Summary of Care Provided Minutes Spent on Discharge: 31 Hospital Course: This 51-year-old white male was seen in the emergency room at [facility] with complaints of abdominal pain, work-up in the emergency room included a CAT scan which showed what appeared to be an ileus, patient received IV pain medication, general surgery was contacted and the patient was admitted to [place] [address] with IV fluids and pain control and antiemetics. Patient was seen in consultation by general surgery, NG tube was inserted and the patient underwent conservative care for several days, unfortunately the patient's symptoms did not resolved and it was felt that the patient had a small bowel obstruction, he went to surgery and underwent lysis of adhesions. There were no serious complications with the patient surgery. On 10/13/2022, patient was seen and examined: On examination he appeared in good health and spirits. Vital signs as documented. Skin warm and dry and without overt rashes. Neck without JVD, neck was supple, trachea midline, thyroid was normal. Lungs clear bilaterally, normal air movement was noted. Heart exam notable for regular rhythm, normal sounds and absence of murmurs, rubs or gallops. Abdomen unremarkable and without evidence of organomegaly, masses, or abdominal aortic enlargement. Bowel sounds are present, abdomen is not distended. Extremities nonedematous, no cyanosis was noted, no clubbing was noted. Neuro: Cranial nerves II through XII are grossly intact, no focal motor deficits were noted, sensation to light touch and pinprick intact, motor exam 5/5 throughout. Psych: Patient is alert and oriented x3, he does not appear anxious or depressed, he does not appear agitated. Patient appears stable for discharge on 10/13/2022 Weight / BMI Weight Weight: 109.3 kg Body Mass Index (BMI) 34.6 ABG / Lab / Microbiology Data Result Diagrams: 10/09/22 05:50 10/09/22 05:50 Laboratory: Laboratory Results - last 24 hr 10/12/22 08:50: Urine Color Yellow, Urine Clarity Clear, Urine pH 5.0, Ur Specific [place] 1.020, Urine Protein 30 H, Urine Glucose (UA) Normal, Urine Ketones 50 H, Urine Occult Blood 50 H, Urine Nitrite Negative, Urine Bilirubin 1 H, Urine Urobilinogen Normal, Ur Leukocyte Esterase 25 H D/C Instructions Discharge Diet: No restrictions Weight Bearing Status: Full weight bearing Meaningful Use Info Meaningful Use Diagnoses (Choose all that apply): None applicable Discharge Plan Admission Admit Date/Time: 10/06/22 18:56 Primary Reason for Your Visit: small bowel obstruction Attending Provider: Kris Aaln Primary Care Provider: Ana Rodney Consulting Providers: Dieter Cruz ; Luis Cochran Discharge Orders/Prescriptions Prescriptions: Continued carvedilol 25 mg tablet 25 mg PO BID Label Comments: Take 1 tablet by mouth twice daily with meals. multivit,tx w/iron (hematinic) Tablet 1 tab PO DAILY cholecalciferol (vitamin D3) [Vitamin D3] 50 mcg (2,000 unit) Tablet 50 mcg PO DAILY Referrals / Follow Up: Ana Rodney, NIKOC [Primary Care Provider] - See Referral Note (as scheduled at your next appointment) Dieter Cruz MD [Med Staff - Active Staff] - See Referral Note (in one week-call for an appointment) Care Physician,No Primary [Non-Staff] - Disposition Disposition (needs filled in before D/C Order can be placed): Home, Self Care Charges/Coding Visit Charges Inpatient E&M: 43051 Disch Hosp
== END 2022-10-13 10:50 | disposition home or self-care (01) | DRG 354 ==
LOC: ED 17:53 → MS3 19:13
PROVIDERS: Physician Assistant; Surgery; Emergency Provider Emergency Medicine; PCP Nurse Practitioner Family; Visit Provider Internal Medicine
PROC: 0WQF0ZZ Repair Abdominal Wall, Open Approach (ICD-10-PCS; CPT 49000; principal; 2022-10-08 11:45)
DX: K56.50 Intestinal adhesions [bands], unspecified as to partial versus complete obstruction (principal); I42.9 Cardiomyopathy, unspecified; K43.0 Incisional hernia with obstruction, without gangrene; K56.7 Ileus, unspecified; Z93.2 Ileostomy status; F17.220 Nicotine dependence, chewing tobacco, uncomplicated; I10 Essential (primary) hypertension
CPT/HCPCS: 36415; 74018; 74019; 74177; 80048; 80053; 81002; 83690; 85025; 88305; 93005; 97802; 97803; 99251; 99284; J7030; J7050; J7120; Q9967; A4216; G0463; J2405

== ENCOUNTER 2023-04-28 13:01 | Emergency (ER) | payer BC, SELFPAY ==
[2023-04-28 13:03] VITALS: BP 155/92; PULSE 104; RESP 22; TEMP 36.6; O2SAT 100; BMI 34.8
--- NOTE | 2023-04-28 13:49 | VDLE_ITS ---
Reason For Study: RLE pain RIGHT GSV is normal. CFV is compressible, spontaneous, phasic, competent and demonstrates normal augmentation. FV is compressible, spontaneous, phasic, competent and demonstrates normal augmentation. POP V is compressible, spontaneous, phasic, competent and demonstrates normal augmentation. T/P Trunk is compressible. PTV is compressible. RT PerV is compressible. Procedure This is a venous duplex using B-mode, color flow and spectral Doppler. Exam performed portable in ED. The exam was abbreviated due to the COVID 19 protocol. The exam was diagnostic. A preliminary report was called and/or faxed to Dr. Pinto. VL/Venous Duplex US, Unilateral Interpretation Summary Deep veins of the right lower extremity are patent and compressible segmentally . There is no evidence of right lower extremity deep vein thrombosis. The right great sapheno us vein appears patent and compressible segmentally. Ordering Physician: Luis Pinto Performed By: Alec Elizalde RVT
[2023-04-28] MEDS: Aspirin 81 MG TAB.CHEW 324 MG PO (13:54)
--- NOTE | 2023-04-28 13:55 | RAD_ITS ---
STUDY: X-RAY CHEST REASON FOR EXAM: Male, 52 years old. Chest pain/pressure TECHNIQUE: Single AP portable view of the chest. COMPARISON: None. FINDINGS: EKG leads overlie the chest The lungs are clear and expanded. There is no demonstrated pleural abnormality. Normal size heart. Normal mediastinum and mark. Normal visualized pulmonary arteries. Normal visualized aortic arch and descending thoracic aorta. Normal visualized thoracic spine. Normal visualized ribs, clavicles, and shoulders. There is no demonstrated abnormality of the visualized soft tissue structures of the upper abdomen. RAD/Chest 1 View (Portable) IMPRESSION: Normal x-ray examination of the chest. Electronically Signed: Ricky Pena MD at 14:23 EDT ,
[2023-04-28 14:01] LABS: Absolute Lymphocyte Count 2.48 X10^3/uL (0.83-4.51); Absolute Neutrophil Count 7.1 X10^3/uL (2.0-7.7); Basophil# 0.07 X10^3/uL; Basophil% 0.6 % (0-1); Eosinophil# 0.21 X10^3/uL; Eosinophils% 1.9 % (0-5); Hematocrit 44.7 % (40-54); Hemoglobin 15.4 g/dL (13.0-16.5); Lymphocyte # 2.48 X10^3/ul (0.83-4.51); Lymphocyte % 22.9 % (19-41); Mean Corp Hgb Conc 34.5 g/dL (32-36); Mean Corpuscular Hgb 31.6 pg (27.0-32.0); Mean Corpuscular Volume 91.8 fL (80-94); Monocyte% 8.3 % (0-10); NRBC Flagged by Analyzer 0 % (0-5); Neutrophil # 7.14 X10^3/uL (2.7-7.7); Neutrophil % 65.9 % (47-70); Platelet Count 290 K/mm3 (150-450); RBC Distribution Width CV 12.3 % (11.6-14.6); RBC Distribution Width SD 40.8 fl (35.1-43.9); Red Blood Count 4.87 M/mm3 (4.6-6.2); White Blood Count 10.8 K/mm3 (4.4-11.0)
[2023-04-28 14:16] LABS: D-Dimer Quantitative (DVT/PE) < 0.27 FEU/ug/m (0.27-0.49)
[2023-04-28 14:18] LABS: Anion Gap 8 (5-15); BUN 18 mg/dL (7-18); BUN/Creat Ratio 13.1 RATIO (10-20); Calcium,Total 9.1 mg/dL (8.5-10.1); Chloride 103 mmol/L (98-107); Creatinine, Serum 1.37 mg/dL (0.70-1.30); EST Glomerular Filtration Rate 58 mL/min (>60); Est Glom Filt Rate - Afr Amer 71 mL/min (>60); Glucose 110 mg/dL (74-106); Potassium 3.3 mmol/L (3.5-5.1); Sodium Level 137 mmol/L (136-145); Troponin-I HS (w/2H Reflex) 7 pg/mL (3.0-78.0)
[2023-04-28 14:26] VITALS: PULSE 95; O2SAT 96
--- NOTE | 2023-04-28 15:30 | ED.VIS.CHEST ---
HPI History of Present Illness Chief Complaint: Chest Pain Informant: patient Onset/Context/Timing Onset: Today Activity at onset: sudden Timing: Continuous Quality: Positive for Sharp Location: Substernal and Left Parasternal Worsened By: Nothing Relieved By: Nothing Associated Symptoms: Positive for Palpitations; Negative for Nausea, Vomiting, Diaphoresis, Dyspnea, Cough, Fever, Lightheadedness or Acid Reflux Narrative Narrative: Patient presents with chest pain that began approximately 3 hours prior to arrival. Patient states it has been constant. Patient states it began rather suddenly. Patient describes the pain as sharp. Patient states the pain is over the substernal and left parasternal areas. Patient states nothing makes it better nothing makes it worse. Patient admits to some palpitations with the pain. Patient denies any nausea or vomiting. Patient denies any cough or shortness of breath. Patient denies any lightheadedness or dizziness. CVD Risk Factors: Positive for Hypertension; Negative for Diabetes, Hypercholesterolemia, Family History 1' </=55 or Smoking PE Risk Factors: Negative for Recent Travel/Surgery, Recent Immobilization, Prior DVT or PE, Cancer or OCP + Smoking + >/=35 PFSH PFSH Medical History Abdominal pain, acute GERD (gastroesophageal reflux disease) Hypertension Ileostomy present Ileus Incarcerated incisional hernia Irregular heart beat Small bowel obstruction due to adhesions Status post abdominal surgery, follow-up exam Ulcerative colitis Home Medications carvedilol 25 mg tablet 25 mg PO BID 10/06/22 [History Last Taken Unknown] cholecalciferol (vitamin D3) 50 mcg (2,000 unit) tablet (Vitamin D3) 50 mcg PO DAILY vitamins 10/06/22 [History Last Taken Unknown] multivit,tx w/iron (hematinic) 1 tab PO DAILY 10/06/22 [History Last Taken Unknown] Allergy/AdvReac Type Severity Reaction Status Date / Time No Known Allergies Allergy Verified 10/06/22 15:17 Surgical History H/O colectomy H/O ileostomy H/O knee surgery Hx of appendectomy Social History Smoking Status: Current every day smoker tobacco type: cigarettes and smokeless tobacco alcohol intake: current alcohol intake frequency: 3 or more drinks per day Alcohol type: beer substance use type: does not use ROS ROS ED Constitutional Constitutional ED: Denies chills or fever(s) Eyes Eyes: Denies blurry vision or change in vision ENT ENT ED: Denies rhinorrhea or sore throat Cardiovascular Cardiovascular: Reports chest pain and palpitations Respiratory/Chest Respiratory/Chest: Denies cough or dyspnea Gastrointestinal Gastrointestinal: Denies nausea or vomiting Genitourinary Genitourinary ED: Denies dysuria or hematuria Musculoskeletal Musculoskeletal: Denies back pain or neck pain Integumentary Denies abscess or rash Neurologic Neurologic: Denies headache(s) or weakness Allergic/Immunologic Allergic/Immunologic ED: Denies mouth swelling or urticaria EXAM Physical Exam Const Vital Signs: 04/28/23 13:03 04/28/23 13:48 04/28/23 14:26 Temperature 98 F Temperature Source Temporal Pulse Rate 104 H 95 Respiratory Rate 22 H Respiratory Pattern Normal Blood Pressure 155/92 H Blood Pressure Mean 113 Pulse Ox 100 96 Oxygen Delivery Method Room Air Room Air 04/28/23 13:55 04/28/23 15:41 Temperature Temperature Source Pulse Rate 94 Respiratory Rate 16 Respiratory Pattern Blood Pressure 141/88 H Blood Pressure Mean 105 Pulse Ox 97 Oxygen Delivery Method Room Air Room Air Positive well nourished, well developed, obese, alert, oriented x3 and no apparent distress General Appearance ED: well developed Nutritional Appearance: obese HEENT Reports moist mucous membranes Neck supple and no JVD Chest Wall Chest Narrative: There is mild tenderness over the left anterior chest. This is different than the pain that made him come to the emergency department. There is no edema or ecchymosis. There is no bony crepitance or step-off. There is no subcutaneous emphysema noted. Resp normal respiratory effort and clear to auscultation bilaterally Cardio regular rate, regular rhythm and no murmurs GI normal to inspection, nondistended, normoactive bowel sounds and non-tender Palpation: soft Extremity full ROM General Extremety ED: Yes edema and tenderness General Extremity: edema right lower extremity mild Neuro oriented x3, CN's II-XII intact bilaterally and no sensory deficits noted Sensorium / Orientation: alert Motor Exam: strength 5/5 throughout Psych mental status grossly normal Skin no rashes or lesions noted Heart Score History: Slightly/Non-Suspicious ECG: Nonspecific Repolarization Age: >45 - <65 years Risk Factors: 1 or 2 Risk Factors Troponin: </= Normal Limit Score: 3 MDM MDM MDM Narrative Medical decision making narrative: Differential diagnosis includes cardiac dysrhythmia, cardiac ischemia, pneumonia, pneumothorax, GERD, pulmonary embolism, anxiety, and musculoskeletal pain. EKG will be obtained to assess for cardiac dysrhythmia and cardiac ischemia. Chest x-ray will be obtained to assess for pneumonia and pneumothorax. CBC will be obtained to assess for leukocytosis and anemia. Basic metabolic profile will be obtained to assess for electrolyte abnormality and renal function. High-sensitivity troponin will be obtained to assess for cardiac ischemia. 2-hour repeat high-sensitivity troponin will be obtained to assess for ongoing cardiac ischemia. D-dimer will be obtained to assess for pulmonary embolism. Incidentally, the patient stated that he had been having some right lower leg pain that he was talking to his primary care physician about. Patient states his primary care physician was going to schedule every to rule out DVT. We will obtain this here in the emergency department. Lab Data Attestation: I reviewed the patient's lab results. Lab results narrative: CBC was reviewed and was within normal limits. Basic metabolic profile was reviewed. Creatinine was slightly elevated at 1.37. Anion gap was normal. CO2 was normal. BUN was normal. High-sensitivity troponin was reviewed and was normal at 7. D-dimer was reviewed and was normal at less than 0.27. 2-hour repeat high-sensitivity troponin was reviewed and was normal at 8. Labs: Laboratory Results - last 24 hr 04/28/23 04/28/23 04/28/23 13:05 13:05 13:05 WBC 10.8 RBC 4.87 Hgb 15.4 Hct 44.7 MCV 91.8 MCH 31.6 MCHC 34.5 RDW Std Deviation 40.8 RDW Coeff of Taran 12.3 Plt Count 290 MPV 10.0 Immature Gran % (Auto) 0.400 Neut % (Auto) 65.9 Lymph % (Auto) 22.9 Thayer % (Auto) 8.3 Eos % (Auto) 1.9 Baso % (Auto) 0.6 Absolute Neuts (auto) 7.1 Absolute Lymphs (auto) 2.48 Nucleated RBC % 0 D-Dimer Quant (PE/DVT) < 0.27 L Sodium 137 Potassium 3.3 L Chloride 103 Carbon Dioxide 26.0 Anion Gap 8 BUN 18 Creatinine 1.37 H Estim Creat Clear Calc 68.70 Est GFR (MDRD) Af Amer 71 Est GFR (MDRD) Non-Af 58 L BUN/Creatinine Ratio 13.1 Glucose 110 H Calcium 9.1 Troponin I High Sens 7 04/28/23 15:40 WBC RBC Hgb Hct MCV MCH MCHC RDW Std Deviation RDW Coeff of Taran Plt Count MPV Immature Gran % (Auto) Neut % (Auto) Lymph % (Auto) Thayer % (Auto) Eos % (Auto) Baso % (Auto) Absolute Neuts (auto) Absolute Lymphs (auto) Nucleated RBC % D-Dimer Quant (PE/DVT) Sodium Potassium Chloride Carbon Dioxide Anion Gap BUN Creatinine Estim Creat Clear Calc Est GFR (MDRD) Af Amer Est GFR (MDRD) Non-Af BUN/Creatinine Ratio Glucose Calcium Troponin I High Sens 8 Radiography Diagnostic Testing: Clinical Impression(s) from Imaging Studies Chest X-Ray 04/28/23 13:55 IMPRESSION: Normal x-ray examination of the chest. Electronically Signed: Ricky Pena MD at 14:23 EDT , Portable 1 view chest x-ray was obtained. On my independent interpretation, lung schmitt are clear. There is normal cardiac silhouette. Bony thorax is normal. There is no acute process noted. Radiologist also interpreted the x-ray and agrees. Venous duplex of the right lower extremity was obtained. There is no evidence of DVT. EKG Initial EKG: Attestation: I personally reviewed and interpreted this EKG as follows: Interpretation: Sinus Rhythm (99) and Non-Specific ST Changes Comments: EKG was obtained. On my independent interpretation, it showed a normal sinus rhythm with a rate of 99. NH interval, QRS interval, and QTc intervals were all normal. [place] was normal. There are nonspecific ST-T wave changes. Prior EKG tracings: available for review Prior: Unchanged (10/08/2022) Treatment and Re-Evaluation :: Patient was given aspirin here. Patient was advised of his findings. Patient has a HEART score of 3. Patient was advised that this is low risk for acute cardiac event. Patient was instructed to follow-up with his primary care physician in 5 to 7 days for further evaluation. Patient understood and was agreeable with the plan. All questions were answered. Discharge Plan Triage Chief Complaint: Chest Pain ED Provider: Luis Pinto Dx/Rx/DC Orders Clinical Impression: Chest pain, Peripheral edema Instructions: ED Chest Pain, Uncertain Cause Prescriptions: No Action carvedilol 25 mg tablet 25 mg PO BID Label Comments: Take 1 tablet by mouth twice daily with meals. multivit,tx w/iron (hematinic) Tablet 1 tab PO DAILY cholecalciferol (vitamin D3) [Vitamin D3] 50 mcg (2,000 unit) Tablet 50 mcg PO DAILY Primary Care Provider: Ana Rodney Referrals: Ana Rodney, VESSEL MANAGER-C [Primary Care Provider] - 3-5 Days Disposition Disposition: Home, Self Care
[2023-04-28 15:41] VITALS: BP 141/88; PULSE 94; RESP 16; O2SAT 97
[2023-04-28 15:55] LABS: Reflex Troponin-HS? (from REC) Y
[2023-04-28 16:17] LABS: Troponin-I HS 8 pg/mL (3.0-78.0)
== END 2023-04-28 16:40 | disposition home or self-care (01) ==
PROVIDERS: Emergency Provider Emergency Medicine; PCP Nurse Practitioner Family; Visit Provider Emergency Medicine
DX: R07.9 Chest pain, unspecified (principal); I10 Essential (primary) hypertension; R60.9 Edema, unspecified; Z79.899 Other long term (current) drug therapy; Z90.49 Acquired absence of other specified parts of digestive tract; F17.210 Nicotine dependence, cigarettes, uncomplicated; F17.290 Nicotine dependence, other tobacco product, uncomplicated
CPT/HCPCS: 71045; 80048; 84484; 85025; 85379; 93005; 93971; 99285; A4216

== ENCOUNTER → 2023-10-28 | Outpatient (CLI) | payer BC, SELFPAY ==
--- NOTE | 2023-10-28 10:23 | NEURO ---
NCS and/or EMG Patient Report Ordering Doctor: Samuel Hilario DATE OF SERVICE: 10/28/23 Clinical Summary: This is a 53 year old male patient presenting with complaints of numbness, tingling, and pain in both feet. Symptoms are more pronounced and constant in the root foot. This EMG/NCS was performed to evaluate for peripheral polyneuropathy. Nerve Conduction Studies Summary: Nerve conduction studies performed in the bilateral lower extremities were normal. Needle Examination Summary: Needle examination of select muscles of the bilateral lower extremities was normal. Impression: This is a normal study. There is no electrodiagnostic evidence of a large-fiber peripheral polyneuropathy. Multi Select Codes Neurology Neurology Interp Codes: 28902-84 Musc test done w/n test comp (interp) (2) and 06061-17 Nrv cndj test 7-8 studies (interp)
== END | disposition home or self-care (01) ==
LOC: PSN 09:10
PROVIDERS: PCP Nurse Practitioner Family; Referring Provider Podiatrist Foot & Ankle Surgery; Visit Provider Podiatrist Foot & Ankle Surgery
DX: R20.0 Anesthesia of skin (principal)
CPT/HCPCS: 95886; 95910

== ENCOUNTER → 2024-08-17 | Outpatient (CLI) | payer BC, SELFPAY ==
--- NOTE | 2024-08-17 08:20 | VDLE_ITS ---
Reason For Study: BILATERAL CALF PAIN RIGHT LEFT GSV is normal. GSV is normal. CFV is compressible, spontaneous, phasic, CFV is compressible, spontaneous, phasic, competent and demonstrates normal competent, and demonstrates normal augmentation. augmentation. FV is compressible, spontaneous, phasic, FV is compressible, spontaneous, phasic, competent and demonstrates normal competent and demonstrates normal augmentation. augmentation. POP V is compressible, spontaneous, phasic, POP V is compressible, spontaneous, phasic, competent and demonstrates normal competent and demonstrates normal augmentation. augmentation. T/P Trunk is compressible. T/P Trunk is compressible. PTV is compressible. PTV is compressible. RT PerV is compressible. LT PerV is compressible. Procedure This is a venous duplex using B-mode, color flow and spectral Doppler. Exam performed in department. A preliminary report was called and/or faxed to Ana Rodney @ [phone] @09:40 am. VL/Venous Duplex US - Johnie Extrem Interpretation Summary Deep veins of the lower extremities are bilaterally patent and compressible seg mentally. There is no evidence of deep vein thrombosis on either side. Valvular competence appears in tact within the proximal deep venous systems bilaterally. The great saphenous veins appear bila terally patent and compressible segmentally. Ordering Physician: Ana Rodney Referring Physician: Ana Rodney Performed By: Risa Yousif, RDCS, RVT
--- NOTE | 2024-08-17 08:20 | ART_ITS ---
Reason For Study: BILATERAL CALF PAIN Procedure A bilateral lower extremity continuous wave Doppler with analog waveform analysis and ankle brachial indexes. Left Segmental Pressures Left brachial= 134mmHg. Left posterior tibial artery = 160mmHg. Left dorsalis pedis artery = 163mmHg. The left posterior tibial artery waveforms are triphasic. The left dorsalis pedis waveforms are triphasic. Right Segmental Pressures Right brachial= 127mmHg. Right posterior tibial artery = 169mmHg. Right dorsalis pedis artery = 163mmHg. The right posterior tibial artery waveforms are triphasic. The right dorsalis pedis waveforms are triphasic. Indices The right resting ankle brachial index is 1.26. The right ankle brachial index by the posterior tibial artery is 1.26. The right ankle brachial index by the dorsalis pedis is 1.22. The left resting ankle brachial index is 1.22. The left ankle brachial index by the posterior tibial artery is 1.19. The left ankle brachial index by the dorsalis pedis is 1.22. VL/Ankle Brachial Index Interpretation Summary Triphasic Doppler waveforms are noted at ankle level bilaterally. Pulse-volume recordings appear satisfactory at ankle level bilaterally. Resting ankle-brachial indices are nor mal bilaterally. There is no evidence of significant arterial occlusive disease in the lower ext remities bilaterally. Ordering Physician: Ana Adkins Referring Physician: ANA ADKINS FRUIT GRADER-C Performed By: Risa Yousif, RDCS, RVT
== END | disposition home or self-care (01) ==
LOC: CVS 08:19
PROVIDERS: PCP Nurse Practitioner Family; Referring Provider Nurse Practitioner Family; Visit Provider Nurse Practitioner Family
DX: M79.661 Pain in right lower leg (principal); M79.662 Pain in left lower leg
CPT/HCPCS: 93922; 93970